=== PATIENT | male | born 1935 | race Caucasian/White ===

== ENCOUNTER 2016-07-17 20:18 | Emergency (ER) | payer MEDICARE, OTHER ==
[2016-07-17 20:28] VITALS: BP 175/92
--- NOTE | 2016-07-17 20:49 | EDM.PDOC ---
ED HPI Trauma - General Chief Complaint: Upper Extremity Injury/Pain Stated Complaint: Right hand injury Time Seen by Provider: 07/17/16 20:40 Source: Reports: Patient, RN notes reviewed History Limitations: Reports: No limitations - History of Present Illness INITIAL COMMENTS - FREE TEXT/NARRATIVE: 80 year old male presents to the ED with right hand pain. He injured his hand while using a power drill today. The drill caught on something, causing it to come to an abrupt stop and twisted his hand. He has no numbness or tingling. No additional injury. Allergies/ADRs: Allergies No Known Allergies Allergy (Verified 07/17/16 20:25) Home Medications: Ambulatory Orders Allopurinol [Zyloprim] 1.5 tab PO DAILY 08/23/13 [Confirmed 03/23/14] Aspirin [Halfprin] 1 tab PO DAILY 08/23/13 [Confirmed 03/23/14] Clopidogrel [Plavix] 75 mg PO DAILY 08/23/13 [Confirmed 03/23/14] Dronedarone [Multaq] 400 mg PO BID 08/23/13 [Confirmed 03/23/14] Furosemide [Lasix] 20 mg PO DAILY 08/23/13 [Confirmed 03/23/14] Losartan [Cozaar] 25 mg PO QPM 08/23/13 [Confirmed 03/23/14] Metoprolol Succinate [Toprol XL] 50 mg PO DAILY 08/23/13 [Confirmed 03/23/14] Nitroglycerin [Nitrostat] 0.4 mg SL ASDIRECTED 08/23/13 [Confirmed 03/23/14] Ranitidine [Zantac] 1 tab PO BID 08/23/13 [Confirmed 03/23/14] atorvaSTATin [Lipitor] 10 mg PO DAILY 08/23/13 [Confirmed 03/23/14] Vit A/Vit C/Vit E/Zinc/Copper [Preservision] 2 cap PO DAILY 03/23/14 [Confirmed 03/23/14] Warfarin [Coumadin] 1.5 tab PO QPM 03/23/14 [Confirmed 03/23/14] Acetaminophen/HYDROcodone [[place] 325-5 MG] 1 tab PO Q6H PRN #20 tablet 07/17/16 Past Medical History HEENT History: Reports: Cataract Cardiovascular History: Reports: High cholesterol, Hypertension, [place] - Past Surgical History Cardiovascular Surgical History: Reports: Coronary artery bypass, Coronary artery stent GI Surgical History: Reports: Appendectomy Other Musculoskeletal Surgeries/Procedures:: back surgery Social & Family History - Tobacco Use Smoking Status *Q: Former Smoker Years of Tobacco use: 60 Used Tobacco, but Quit: Yes Month Tobacco Last Used: 12 Second Hand Smoke Exposure: No - Alcohol Use Days Per Week of Alcohol Use: 0 - Recreational Drug Use Recreational Drug Use: No Review of Systems - Review of Systems Review Of Systems: See Below Musculoskeletal: Reports: hand pain Skin: Reports: no symptoms. Denies: wound Neurological: Reports: No Symptoms. Denies: Numbness, Tingling Trauma Exam - Physical Exam Exam: See Below Exam Limited By: No limitations General Appearance: Reports: alert, WD/WN, no apparent distress Respiratory Exam: Reports: no respiratory distress, lungs clear Cardiovascular: Reports: regular rate, rhythm Extremities: Reports: bony-point tenderness (over 5th metacarpal. No pain over the distal radius or ulna. CMS intact. No obvious deformity) Neurologic: Reports: no motor/sensory deficits, alert, normal mood/affect ED TRAUMA EXTREMITY PROCEDURES - Splinting Right Upper Extremity Splint site: right hand/wrist Pre-procedure NV status: normal Post-procedure NV status: normal Splint material: fiberglass Splint design: gutter (ulnar) Applied & form fitted by: provider Provider post-splint application NV check: NV status normal, good position Complications: No Course - Vital Signs Last Recorded V/S: Last Vital Signs Temp 98.5 F 07/17/16 20:25 Pulse 86 07/17/16 20:25 Resp 18 07/17/16 20:25 BP 175/92 H 07/17/16 20:25 Pulse Ox 97 07/17/16 20:25 - Orders/Labs/Meds Orders: Active Orders 24 hr Category Date Time Status Hand Comp Min 3V Rt [CR] Stat Exams 07/17/16 20:48 Ordered - Re-Assessments/Exams Free Text/Narrative Re-Assessment/Exam: X-ray reveals a displaced fracture of the 5th metacarpal. Discussed with Dr. Velasquez who recommends a ulnar gutter splint and f/u with Dr. Duran in 3-4 days. Patient was educated on fracture care and f/u instructions. Prescription provided for [place] for pain. Educated on medication side effects. Discharge instructions as documented. Departure - Departure Time of Disposition: 21:21 Disposition: Home, Self-Care 01 Condition: good Clinical Impression: Fracture, metacarpal Qualifiers: Encounter type: initial encounter Metacarpal bone: fifth Fracture type: closed Metacarpal location: base Fracture alignment: displaced Laterality: right Qualified Code(s): S62.316A - Displaced fracture of base of fifth metacarpal bone, right hand, initial encounter for closed fracture Prescriptions: Acetaminophen/HYDROcodone [[place] 325-5 MG] 1 tab PO Q6H PRN #20 tablet PRN Reason: Pain Instructions: Metacarpal Fracture, [id number] Referrals: Jaden Gonzalez Jr, MD [Primary Care Provider] - Forms: ED Department Discharge Additional Instructions: Rest, ice and elevate Tylenol 650mg every 8 hours as needed for mild pain [place] 1 tab every 6 hours as needed for more severe pain No driving for at least 8 hours after taking [place]. Caution, this medication can cause sedation. Follow-up with Dr. Duran as soon as possible, call [phone] to schedule an appointment Return to ER if you develop worsening pain Do not remove the splint. Do not get the splint wet - My Orders Last 24 Hours: My Active Orders 07/17/16 20:48 Hand Comp Min 3V Rt [CR] Stat - Assessment/Plan Last 24 Hours: My Active Orders 07/17/16 20:48 Hand Comp Min 3V Rt [CR] Stat
--- NOTE | 2016-07-18 10:31 | CR ---
Right hand: Four views of the right hand were obtained. Comparison: No previous hand study. Joint space narrowing and osteophytes seen within the MCP, PIP and DIP joints. Deformity is seen within the distal fifth metacarpal presumably due to old fracture. Calcification noted off the distal ulnar bone within the triangular fibrocartilage which appears old. Vascular calcification is seen. Impression: 1. Diffuse degenerative change. 2. Deformity of the fifth distal metacarpal most likely representing old fracture but please correlate that patient has no acute symptoms to this region. Diagnostic code #3
== END 2016-07-17 21:30 | disposition home or self-care (01) ==
LOC: JD.ED 20:18
DX: S62.316A Displaced fracture of base of fifth metacarpal bone, right hand, initial encounter for closed fracture (principal); W29.8XXA Contact with other powered hand tools and household machinery, initial encounter; E78.00 Pure hypercholesterolemia, unspecified; I25.2 Old myocardial infarction; I10 Essential (primary) hypertension; Z90.49 Acquired absence of other specified parts of digestive tract; Z95.1 Presence of aortocoronary bypass graft; Z87.891 Personal history of nicotine dependence
CPT/HCPCS: 29125; 73130-26-RT; 73130-RT; 99283; 99283-25; 99284-25

== ENCOUNTER 2018-08-19 21:45 | Emergency (ER) | payer MEDICARE, OTHER ==
[2018-08-19] MEDS ORDERED: Sodium Chloride 0.9% 10 ML Syringe FLUSH PRN (22:08)
[2018-08-19] MEDS ORDERED: diphenhydrAMINE 25 MG Cap PO ONE (23:17)
[2018-08-19 23:22] VITALS: BP 145/89
--- NOTE | 2018-08-19 23:23 | EDM.PDOC ---
ED HPI GENERAL MEDICAL PROBLEM - General Chief Complaint: Chest Pain Stated Complaint: [facility] Time Seen by Provider: 08/19/18 21:57 Source of Information: Reports: Patient, RN Notes Reviewed - History of Present Illness INITIAL COMMENTS - FREE TEXT/NARRATIVE: 82-year-old male comes in with intermittent chest pain left lower chest yesterday and today. He has had occasional shortness of breath at home but does deny shortness of breath on arrival to ED. He does have history of coronary artery disease with bypass surgery many years ago. He has had no abdominal pain nausea vomiting or diaphoresis. He is pain-free at time of my evaluation. Biggest concern when I do visits with him was inability to sleep last night". It sounds like he did do some napping today sitting in his easy chair, at least according to his . He does have history of chronic atrial fib, on Coumadin. - Related Data Allergies Allergy/AdvReac Type Severity Reaction Status Date / Time No Known Allergies Allergy Verified 08/19/18 21:55 Home Meds: Home Meds Aspirin [Halfprin] 1 tab PO DAILY 08/23/13 [History] Furosemide [Lasix] 20 mg PO DAILY 08/23/13 [History] Losartan [Cozaar] 25 mg PO QPM 08/23/13 [History] Metoprolol Succinate [Toprol XL] 50 mg PO QPM 08/23/13 [History] Nitroglycerin [Nitrostat] 0.4 mg SL ASDIRECTED PRN 08/23/13 [History] Ranitidine [Zantac] 1 tab PO BID 08/23/13 [History] Vit A/Vit C/Vit E/Zinc/Copper [Preservision] 2 cap PO DAILY 03/23/14 [History] Warfarin [Coumadin] 5 mg PO DAILY 03/23/14 [History] Metoprolol Succinate 25 mg PO QAM 08/19/18 [History] Pravastatin Sodium [Pravastatin (Pravachol)] 40 mg PO DAILY 08/19/18 [History] Past Medical History HEENT History: Reports: Cataract Cardiovascular History: Reports: High Cholesterol, Hypertension, [place] - Past Surgical History Cardiovascular Surgical History: Reports: Coronary Artery Bypass, Coronary Artery Stent GI Surgical History: Reports: Appendectomy Other Musculoskeletal Surgeries/Procedures:: back surgery Social & Family History - Tobacco Use Smoking Status *Q: Former Smoker Used Tobacco, but Quit: Yes Month/Year Tobacco Last Used: 10 years ago - Caffeine Use Caffeine Use: Reports: Coffee - Recreational Drug Use Recreational Drug Use: No ED ROS GENERAL - Review of Systems Review Of Systems: See Below Constitutional: Denies: Fever, Chills, Diaphoresis HEENT: Denies: Throat Pain Respiratory: Reports: Shortness of Breath (Occasional, exertional), Cough. Denies: Sputum (Occasional) Cardiovascular: Reports: Chest Pain (Gone) GI/Abdominal: Denies: Abdominal Pain, Nausea, Vomiting Musculoskeletal: Reports: Back Pain (Chronic) Skin: Denies: Rash Neurological: Denies: Trouble Speaking, Difficulty Walking, Weakness ED EXAM, GENERAL - Physical Exam Exam: See Below General Appearance: Alert, No Apparent Distress Throat/Mouth: Normal Inspection Head: Atraumatic Neck: Supple, Full Range of Motion, Other Respiratory/Chest: No Respiratory Distress (No JVD), Lungs Clear, Normal Breath Sounds. No: Rhonchi, Wheezing Cardiovascular: Irregularly Irregular GI/Abdominal: Soft, Non-Tender Extremities: Normal Inspection. No: Pedal Edema, Leg Pain, Increased Warmth, Redness Neurological: Alert, Oriented, No Motor/Sensory Deficits Skin Exam: Warm, Dry, Normal Color EKG INTERPRETATION EKG Date: 08/19/18 Rhythm: A-Fib [place]: Normal QRS: LBBB Course - Vital Signs Last Recorded V/S: Last Vital Signs Temp 97.4 F 08/19/18 21:50 Pulse 72 08/19/18 21:50 Resp 16 08/19/18 21:50 BP 145/89 H 08/19/18 21:50 Pulse Ox 97 08/19/18 21:50 - Orders/Labs/Meds Orders: Active Orders 24 hr Category Date Time Status EKG 12 Lead [EKG Documentation Completion] [RC] STAT Care 08/19/18 22:09 Active Peripheral IV Care [RC] . DIRECTED Care 08/19/18 22:09 Active Chest 1V Frontal [CR] Stat Exams 08/19/18 22:09 Taken Peripheral IV Insertion Adult [OM.PC] Stat Oth 08/19/18 22:09 Ordered Labs: Laboratory Tests 08/19/18 08/19/18 08/19/18 Range/Units 22:25 22:25 22:25 WBC 9.36 H (4.23-9.07) K/mm3 RBC 4.37 L (4.63-6.08) M/mm3 Hgb 13.4 L (13.7-17.5) gm/L Hct 39.8 L (40.1-51.0) % MCV 91.1 (79.0-92.2) fl MCH 30.7 (25.7-32.2) pg MCHC 33.7 (32.2-35.5) g/dl RDW Std Deviation 44.3 H (35.1-43.9) fL Plt Count 231 (163-337) K/mm3 MPV 10.4 (9.4-12.3) fl Neut % (Auto) 69.7 H (34.0-67.9) % Lymph % (Auto) 16.8 L (21.8-53.1) % [place] % (Auto) 10.3 (5.3-12.2) % Eos % (Auto) 2.5 (0.8-7.0) Baso % (Auto) 0.5 (0.1-1.2) % Neut # (Auto) 6.53 H (1.78-5.38) K/mm3 Lymph # (Auto) 1.57 (1.32-3.57) K/mm3 [place] # (Auto) 0.96 H (0.30-0.82) K/mm3 Eos # (Auto) 0.23 (0.04-0.54) K/mm3 Baso # (Auto) 0.05 (0.01-0.08) K/mm3 PT 21.5 H (9.5-12.1) SECONDS INR 2.00 Sodium 141 (136-145) mEq/L Potassium 4.2 (3.5-5.1) mEq/L Chloride 107 (98-107) mEq/L Carbon Dioxide 27 (21-32) mEq/L Anion Gap 11.2 (5-15) BUN 31 H (7-18) mg/dL Creatinine 1.7 H (0.7-1.3) mg/dL Est Cr Clr Drug Dosing TNP Estimated GFR (MDRD) 39 (>60) mL/min BUN/Creatinine Ratio 18.2 H (14-18) Glucose 133 H (83-115) mg/dL Calcium 9.4 (8.5-10.1) mg/dL Total Bilirubin 0.4 (0.2-1.0) mg/dL AST 17 (15-37) U/L ALT 24 (16-63) U/L Alkaline Phosphatase 98 (46-116) U/L Troponin I < 0.017 (0.00-0.056) ng/mL Total Protein 6.9 (6.4-8.2) g/dl Albumin 3.4 (3.4-5.0) g/dl Globulin 3.5 gm/dL Albumin/Globulin Ratio 1.0 (1-2) Meds: Medications Discontinued Medications Generic Name Dose Route Start Last Admin Trade Name Freq PRN Reason Stop Dose Admin Diphenhydramine HCl 25 mg 08/19/18 23:17 08/19/18 23:36 Benadryl PO 08/19/18 23:18 25 mg ONETIME ONE Administration Sodium Chloride 10 ml 08/19/18 22:08 Saline Flush FLUSH ASDIRECTED PRN Keep Vein Open - Re-Assessments/Exams Free Text/Narrative Re-Assessment/Exam: 08/20/18 00:02 Troponin did come back normal, chest x-ray shows mild cardiomegaly but otherwise no apparent acute findings. An resting comfortably while here in the ED, vitals stable rate running merrily in the 80s. He continues to be concerned about his difficulty sleeping last night. I considered giving him something like low dosage lorazepam but his states that type of medication of had the opposite effect on him several years ago. Her for we did give him Benadryl 25 mg orally prior to discharge. Discharge instructions as documented. Departure - Departure Time of Disposition: 23:20 Disposition: Home, Self-Care 01 Condition: Fair Clinical Impression: Atypical chest pain Insomnia Qualifiers: Insomnia type: unspecified Qualified Code(s): G47.00 - Insomnia, unspecified Instructions: Nonspecific Chest Pain, [id number] Referrals: Jaden Gonzalez Jr, MD [Primary Care Provider] - Forms: ED Department Discharge Additional Instructions: You have been given Benadryl 25 mg orally here in the ED at time of discharge. That should make you drowsy and help you sleep tonight. If you feel that is helpful then you can consider taking Tylenol PM in the future to help you sleep. I do strongly recommend that you take melatonin supplement available OTC about one hour before bedtime to help you sleep better in the future. Your heart and lungs checked out well tonight here in the ED. Follow-up with Dr. Gonzalez in about 5-7 days for recheck. Call tomorrow morning for appointment. Return to ED as needed if symptoms worsening in any way. - My Orders Last 24 Hours: My Active Orders 08/19/18 22:09 EKG 12 Lead [EKG Documentation Completion] [RC] STAT Peripheral IV Care [RC] . DIRECTED Chest 1V Frontal [CR] Stat Peripheral IV Insertion Adult [OM.PC] Stat - Assessment/Plan Last 24 Hours: My Active Orders 08/19/18 22:09 EKG 12 Lead [EKG Documentation Completion] [RC] STAT Peripheral IV Care [RC] . DIRECTED Chest 1V Frontal [CR] Stat Peripheral IV Insertion Adult [OM.PC] Stat
--- NOTE | 2018-08-20 06:08 | CR ---
Chest: Portable view of the chest was obtained. Comparison: No prior chest x-ray. Heart size is slightly enlarged. Tortuous thoracic aorta is seen. Sternotomy for CABG is noted. Lungs are clear with no acute parenchymal change. Bony structures are grossly intact. Impression: 1. Findings as noted above. Nothing acute is seen. Diagnostic code #2
== END 2018-08-19 23:40 | disposition home or self-care (01) ==
LOC: JD.ED 21:45
DX: R07.89 Other chest pain (principal); G47.00 Insomnia, unspecified; I10 Essential (primary) hypertension; E78.00 Pure hypercholesterolemia, unspecified; I25.2 Old myocardial infarction; Z79.899 Other long term (current) drug therapy; Z79.82 Long term (current) use of aspirin; Z79.01 Long term (current) use of anticoagulants
CPT/HCPCS: 36415; 71045; 80053; 84484; 85025; 85610; 93005; 99285; A9270; 93010; 99284

== ENCOUNTER 2019-01-22 11:41 | Emergency (ER) | payer MEDICARE, OTHER ==
[2019-01-22 11:50] VITALS: BP 161/97; PULSE 76
--- NOTE | 2019-01-22 13:30 | EDM.PDOC ---
ED HPI GENERAL MEDICAL PROBLEM - General Chief Complaint: General Stated Complaint: [facility] Time Seen by Provider: 01/22/19 11:46 Source of Information: Reports: Patient, RN Notes Reviewed - History of Present Illness INITIAL COMMENTS - FREE TEXT/NARRATIVE: 83-year-old male accidentally took both his morning and evening meds today. His was concerned about that called EMS. Vitals were stable and he was in no distress on their arrival. They did transported here without incident. His also states that he is been more confused recently. He has history of quite severe insomnia. Some trazodone 50 mg was prescribed for him a few weeks ago. However after what his thinks were just a few doses that medication was stopped tenderness to have confusion that seems to be worsening. He currently has no chest pain or difficulty breathing. No abdominal pain nausea vomiting. There is no history of recent fall or injury. - Related Data Allergies Allergy/AdvReac Type Severity Reaction Status Date / Time No Known Allergies Allergy Verified 01/22/19 11:50 Home Meds: Home Meds Aspirin [Halfprin] 1 tab PO DAILY 08/23/13 [History] Furosemide [Lasix] 20 mg PO DAILY 08/23/13 [History] Losartan [Cozaar] 25 mg PO QPM 08/23/13 [History] Metoprolol Succinate [Toprol XL] 50 mg PO QPM 08/23/13 [History] Nitroglycerin [Nitrostat] 0.4 mg SL ASDIRECTED PRN 08/23/13 [History] Ranitidine [Zantac] 1 tab PO BID 08/23/13 [History] Vit A/Vit C/Vit E/Zinc/Copper [Preservision] 2 cap PO BID 03/23/14 [History] Warfarin [Coumadin] 5 mg PO DAILY 03/23/14 [History] Metoprolol Succinate 25 mg PO QAM 08/19/18 [History] Pravastatin Sodium [Pravastatin (Pravachol)] 40 mg PO DAILY 08/19/18 [History] Past Medical History HEENT History: Reports: Cataract Cardiovascular History: Reports: High Cholesterol, Hypertension, [place] - Past Surgical History HEENT Surgical History: Reports: Adenoidectomy, Tonsillectomy Cardiovascular Surgical History: Reports: Coronary Artery Bypass, Coronary Artery Stent GI Surgical History: Reports: Appendectomy Musculoskeletal Surgical History: Reports: Other (See Below) Other Musculoskeletal Surgeries/Procedures:: back surgery Social & Family History - Family History Family Medical History: Noncontributory - Tobacco Use Smoking Status *Q: Current Status Unknown Years of Tobacco use: 60 Packs/Tins Daily: 0.5 - Caffeine Use Caffeine Use: Reports: Coffee - Recreational Drug Use Recreational Drug Use: No ED ROS GENERAL - Review of Systems Review Of Systems: See Below Constitutional: Denies: Fever, Chills HEENT: Denies: Throat Pain Respiratory: Denies: Shortness of Breath Cardiovascular: Denies: Chest Pain GI/Abdominal: Denies: Abdominal Pain, Nausea, Vomiting Musculoskeletal: Denies: Leg Pain Skin: Denies: Rash Neurological: Reports: Dizziness (Gone). Denies: Numbness, Tingling, Trouble Speaking Psychiatric: Reports: Confusion (For at least several weeks, according to seems to be worsening) ED EXAM, GENERAL - Physical Exam Exam: See Below General Appearance: Alert, No Apparent Distress, Other (Cooperative with exam but easily distracted, appears to have difficulty keeping focused.) Eye Exam: Bilateral Eye: PERRL Throat/Mouth: Normal Inspection, Normal Oropharynx Head: Atraumatic. No: Facial Swelling Neck: Supple Respiratory/Chest: No Respiratory Distress, Lungs Clear, Normal Breath Sounds. No: Rales, Rhonchi, Wheezing Cardiovascular: Irregularly Irregular GI/Abdominal: Soft, Non-Tender Back Exam: No: CVA Tenderness (L), CVA Tenderness (R) Extremities: No: Pedal Edema, Leg Pain, Increased Warmth, Redness Neurological: Alert, No Motor/Sensory Deficits Skin Exam: Warm, Dry, Normal Color EKG INTERPRETATION EKG Date: 01/22/19 Rhythm: A-Fib Rate (Beats/Min): 77 P-Wave: Absent QRS: LBBB ST-T: Normal Course - Vital Signs Last Recorded V/S: Last Vital Signs Temp 97.1 F 01/22/19 11:46 Pulse 76 01/22/19 11:46 Resp 19 01/22/19 11:46 BP 161/97 H 01/22/19 11:46 Pulse Ox 97 01/22/19 11:46 - Orders/Labs/Meds Orders: Active Orders 24 hr Category Date Time Status EKG 12 Lead [EKG Documentation Completion] [RC] STAT Care 01/22/19 12:06 Active Influenza Vaccine Charge [RC] .DISCHARGE Care 01/22/19 11:56 Active Labs: Laboratory Tests 01/22/19 01/22/19 01/22/19 Range/Units 12:28 12:28 12:28 WBC 7.18 (4.23-9.07) K/mm3 RBC 4.70 (4.63-6.08) M/mm3 Hgb 13.8 (13.7-17.5) gm/dl Hct 41.8 (40.1-51.0) % MCV 88.9 (79.0-92.2) fl MCH 29.4 (25.7-32.2) pg MCHC 33.0 (32.2-35.5) g/dl RDW Std Deviation 46.2 H (35.1-43.9) fL Plt Count 250 (163-337) K/mm3 MPV 10.7 (9.4-12.3) fl Neut % (Auto) 68.6 H (34.0-67.9) % Lymph % (Auto) 19.1 L (21.8-53.1) % [place] % (Auto) 9.6 (5.3-12.2) % Eos % (Auto) 2.2 (0.8-7.0) Baso % (Auto) 0.4 (0.1-1.2) % Neut # (Auto) 4.92 (1.78-5.38) K/mm3 Lymph # (Auto) 1.37 (1.32-3.57) K/mm3 [place] # (Auto) 0.69 (0.30-0.82) K/mm3 Eos # (Auto) 0.16 (0.04-0.54) K/mm3 Baso # (Auto) 0.03 (0.01-0.08) K/mm3 PT 22.8 H (9.7-12.0) SECONDS INR 2.19 Sodium 139 (136-145) mEq/L Potassium 4.2 (3.5-5.1) mEq/L Chloride 106 (98-107) mEq/L Carbon Dioxide 27 (21-32) mEq/L Anion Gap 10.2 (5-15) BUN 24 H (7-18) mg/dL Creatinine 1.3 (0.7-1.3) mg/dL Est Cr Clr Drug Dosing 48.66 mL/min Estimated GFR (MDRD) 53 (>60) mL/min BUN/Creatinine Ratio 18.5 H (14-18) Glucose 108 (83-115) mg/dL Calcium 9.5 (8.5-10.1) mg/dL Total Bilirubin 0.7 (0.2-1.0) mg/dL AST 13 L (15-37) U/L ALT 18 (16-63) U/L Alkaline Phosphatase 96 (46-116) U/L Total Protein 7.0 (6.4-8.2) g/dl Albumin 3.6 (3.4-5.0) g/dl Globulin 3.4 gm/dL Albumin/Globulin Ratio 1.1 (1-2) Meds: Medications Discontinued Medications Generic Name Dose Route Start Last Admin Trade Name Freq PRN Reason Stop Dose Admin Influenza Virus Vaccine 1 each 01/22/19 11:56 Pharmacy To Dose - Influenza Vaccine IM 01/22/19 11:57 ONETIME ONE Influenza Virus Vaccine 180 mcg 01/22/19 12:00 01/22/19 12:50 Fluzone High-Dose 2019-20 Syringe IM 01/22/19 12:01 180 mcg .ONCE ONE Administration - Re-Assessments/Exams Free Text/Narrative Re-Assessment/Exam: 01/22/19 14:09 EKG does show atrial fibrillation documented, chest x-ray mild atelectasis both bases, no acute findings. Labs did come back relatively normal. INR was in the 2.2 range. Heart rate has continued in the upper 60s to mid 70s while here in the ED. Blood pressure has been fine evidence of hypotension. No evidence of harm from extra medication taken. His states he has only had 2 or 3 doses of the trazodone and then it was stopped but when we counted those in the bottle there were 23 with 30 prescribed 928 so there are 7 days worth of medication missing. I do have some concern based on my brief amount of time with Mr. 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 His short-term memory is not good and he does have difficulty keeping focused on current subject matter. This was discussed with his when we did have a chance to visit in private. She does share my concern. Discharge instructions as documented. Departure - Departure Time of Disposition: 13:37 Disposition: Home, Self-Care 01 Condition: Fair Clinical Impression: Accidental medication overdose, Confusion - Discharge Information Instructions: Accidental Overdose, Confusion Referrals: Jaden Gonzalez Jr, MD [Primary Care Provider] - Forms: ED Department Discharge Additional Instructions: Stop taking the trazodone as that has strong potential for confusion, drowsiness and dizziness. Try increase the melatonin to 10 mg as discussed. Avoid late afternoon or evening caffeine. Try see Dr. Gonzalez in about 3-5 days, call clinic Thursday for appointment. Return to ED as needed. - My Orders Last 24 Hours: My Active Orders 01/22/19 11:56 Influenza Vaccine Charge [RC] .DISCHARGE 01/22/19 12:06 EKG 12 Lead [EKG Documentation Completion] [RC] STAT - Assessment/Plan Last 24 Hours: My Active Orders 01/22/19 11:56 Influenza Vaccine Charge [RC] .DISCHARGE 01/22/19 12:06 EKG 12 Lead [EKG Documentation Completion] [RC] STAT
--- NOTE | 2019-01-22 13:54 | CR ---
Chest: Portable view of the chest was obtained. Comparison: Prior chest x-ray of 08/19/18. Findings: Heart is slightly prominent in size. Tortuous thoracic aorta is seen. Sternotomy for CABG is noted. Lungs shows mild atelectasis within both lung bases. Lungs otherwise are clear. Bony structures are grossly intact. Impression: 1. Mild atelectasis within both lung bases. 2. Other findings as noted above which appears stable from prior chest x-ray. Diagnostic code #2
== END 2019-01-22 13:50 | disposition home or self-care (01) ==
LOC: JD.ED 11:41
DX: T43.211A Poisoning by selective serotonin and norepinephrine reuptake inhibitors, accidental (unintentional), initial encounter (principal); R41.0 Disorientation, unspecified; I10 Essential (primary) hypertension; I25.2 Old myocardial infarction; E78.00 Pure hypercholesterolemia, unspecified; F17.210 Nicotine dependence, cigarettes, uncomplicated; Z79.82 Long term (current) use of aspirin; Z79.899 Other long term (current) drug therapy
CPT/HCPCS: 36415; 71045; 80053; 85025; 85610; 90662; 93005; 99285; G0008

== ENCOUNTER 2019-03-11 11:23 | Emergency (ER) | payer MEDICARE, OTHER ==
[2019-03-11 11:38] VITALS: BP 128/80; PULSE 92
[2019-03-11] MEDS ORDERED: Sodium Chloride 0.9% 10 ML Syringe FLUSH PRN (11:50)
[2019-03-11] MEDS ORDERED: Haloperidol Lactate 5 MG/ML SDV IVPUSH ONE ×2 (12:00→14:32)
--- NOTE | 2019-03-11 12:39 | CT ---
Head CT Technique: Multiple axial sections through the brain were obtained. Intravenous contrast was not utilized. Comparison: No prior intracranial imaging. Findings: Ventricles along with basal cisterns and sulci over the convexities are moderately prominent. Left occipital horn appears more prominent than on the right side compatible with ex vacuole enlargement from old adjacent cortical infarct. No other abnormal parenchymal densities are seen. No evidence of intracranial hemorrhage. No midline shift or mass effect is seen. Mild areas of mucosal thickening seen within the ethmoid and frontal sinuses. Mastoid sinuses are clear. No acute calvarial abnormality is seen. Impression: 1. Sinus findings believed to be incidental and chronic. 2. Generalized atrophy. 3. 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 4. No acute intracranial abnormality is seen. Diagnostic code #2 This report was dictated in [place] Standard Time
--- NOTE | 2019-03-11 13:14 | EDM.PDOCBH ---
ED HPI GENERAL MEDICAL PROBLEM - General Chief Complaint: Neurological Problem Stated Complaint: [facility] Time Seen by Provider: 03/11/19 11:40 Source of Information: Reports: Patient, RN Notes Reviewed - History of Present Illness INITIAL COMMENTS - FREE TEXT/NARRATIVE: 83-year-old male has been brought here by ambulance my 's request after occurrence of aggressive verbal behavior this morning. 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 His states that he began to show signs of forgetfulness 2-3 years ago which has been worsening. For some time now he has had frequent episodes of delusional thinking and behavior. She states he will wake up from sleep as if he is having "bad dreams. He will than start accusing her of having multiple "other men" and also has other delusional thinking and speech about money and other things that nake no sense but tend to get him quite agitated. Patient himself does not know why he is here in the emergency department. When questioned he does deny headache chest abdominal discomfort or any difficulty breathing. - Related Data Allergies Allergy/AdvReac Type Severity Reaction Status Date / Time No Known Allergies Allergy Verified 01/22/19 11:50 Home Meds: Home Meds Aspirin [Halfprin] 1 tab PO DAILY 08/23/13 [History] Furosemide [Lasix] 20 mg PO DAILY 08/23/13 [History] Losartan [Cozaar] 25 mg PO QPM 08/23/13 [History] Metoprolol Succinate [Toprol XL] 50 mg PO QPM 08/23/13 [History] Nitroglycerin [Nitrostat] 0.4 mg SL ASDIRECTED PRN 08/23/13 [History] Ranitidine [Zantac] 1 tab PO BID 08/23/13 [History] Vit A/Vit C/Vit E/Zinc/Copper [Preservision] 2 cap PO BID 03/23/14 [History] Warfarin [Coumadin] 5 mg PO SUMOTUTHFRSA 03/23/14 [History] Metoprolol Succinate 25 mg PO QAM 08/19/18 [History] Pravastatin Sodium [Pravastatin (Pravachol)] 40 mg PO DAILY 08/19/18 [History] Haloperidol [Haldol] 1 mg PO Q12HR #60 tab 03/11/19 [Rx] Past Medical History HEENT History: Reports: Cataract Cardiovascular History: Reports: High Cholesterol, Hypertension, [place] - Past Surgical History HEENT Surgical History: Reports: Adenoidectomy, Tonsillectomy Cardiovascular Surgical History: Reports: Coronary Artery Bypass, Coronary Artery Stent GI Surgical History: Reports: Appendectomy Musculoskeletal Surgical History: Reports: Other (See Below) Other Musculoskeletal Surgeries/Procedures:: back surgery Social & Family History - Family History Family Medical History: Noncontributory - Tobacco Use Smoking Status *Q: Current Every Day Smoker Years of Tobacco use: 50 Packs/Tins Daily: 0.5 - Caffeine Use Caffeine Use: Reports: Coffee, Soda - Recreational Drug Use Recreational Drug Use: No ED ROS GENERAL - Review of Systems Review Of Systems: See Below Constitutional: Denies: Fever, Chills HEENT: Reports: No Symptoms Respiratory: Denies: Shortness of Breath Cardiovascular: Denies: Chest Pain GI/Abdominal: Denies: Abdominal Pain, Nausea, Vomiting Musculoskeletal: Denies: Back Pain Skin: Reports: No Symptoms Neurological: Reports: No Symptoms ED EXAM, BEHAVIORAL HEALTH - Physical Exam Exam: See Below General Appearance: Alert, No Apparent Distress, Other (Moderately confused) Eye Exam: Bilateral Eye: PERRL Throat/Mouth: Normal Inspection, Normal Oropharynx Head: Atraumatic. No: Facial Swelling Neck: Supple, Other Respiratory/Chest: No Respiratory Distress, Lungs Clear (No JVD), Normal Breath Sounds. No: Rales, Rhonchi, Wheezing Cardiovascular: Regular Rate, Rhythm GI/Abdominal: Soft, Non-Tender Extremities: Normal Inspection, Normal Range of Motion. No: Leg Pain, Redness Neurological: Alert, No Motor/Sensory Deficits, Other (Moderately confused oriented to person but not place or time) Psychiatric: Alert, Disoriented, Other Skin Exam: Warm, Dry, Normal color COURSE, BEHAVIORAL HEALTH COMP - Course Vital Signs: Last Vital Signs Temp 97.2 F 03/11/19 11:37 Pulse 92 03/11/19 11:37 Resp 20 03/11/19 11:37 BP 128/80 03/11/19 11:37 Pulse Ox 92 L 03/11/19 11:37 Orders, Labs, Meds: Laboratory Tests 03/11/19 03/11/19 Range/Units 12:10 12:10 WBC 7.52 (4.23-9.07) K/mm3 RBC 4.50 L (4.63-6.08) M/mm3 Hgb 13.6 L (13.7-17.5) gm/dl Hct 40.8 (40.1-51.0) % MCV 90.7 (79.0-92.2) fl MCH 30.2 (25.7-32.2) pg MCHC 33.3 (32.2-35.5) g/dl RDW Std Deviation 48.6 H (35.1-43.9) fL Plt Count 248 (163-337) K/mm3 MPV 11.1 (9.4-12.3) fl Neut % (Auto) 68.4 H (34.0-67.9) % Lymph % (Auto) 18.0 L (21.8-53.1) % [place] % (Auto) 10.0 (5.3-12.2) % Eos % (Auto) 2.8 (0.8-7.0) Baso % (Auto) 0.7 (0.1-1.2) % Neut # (Auto) 5.15 (1.78-5.38) K/mm3 Lymph # (Auto) 1.35 (1.32-3.57) K/mm3 [place] # (Auto) 0.75 (0.30-0.82) K/mm3 Eos # (Auto) 0.21 (0.04-0.54) K/mm3 Baso # (Auto) 0.05 (0.01-0.08) K/mm3 Sodium 139 (136-145) mEq/L Potassium 4.2 (3.5-5.1) mEq/L Chloride 105 (98-107) mEq/L Carbon Dioxide 25 (21-32) mEq/L Anion Gap 13.2 (5-15) BUN 25 H (7-18) mg/dL Creatinine 1.5 H (0.7-1.3) mg/dL Est Cr Clr Drug Dosing 39.74 mL/min Estimated GFR (MDRD) 45 (>60) mL/min BUN/Creatinine Ratio 16.7 (14-18) Glucose 94 (83-115) mg/dL Calcium 9.4 (8.5-10.1) mg/dL Total Bilirubin 0.7 (0.2-1.0) mg/dL AST 12 L (15-37) U/L ALT 17 (16-63) U/L Alkaline Phosphatase 93 (46-116) U/L Total Protein 7.2 (6.4-8.2) g/dl Albumin 3.6 (3.4-5.0) g/dl Globulin 3.6 gm/dL Albumin/Globulin Ratio 1.0 (1-2) Medications Discontinued Medications Generic Name Dose Route Start Last Admin Trade Name Dasha PRN Reason Stop Dose Admin Haloperidol Lactate 2 mg 03/11/19 12:00 03/11/19 12:15 Haldol IVPUSH 03/11/19 12:01 2 mg ONETIME ONE Administration Haloperidol Lactate 1 mg 03/11/19 14:32 03/11/19 14:45 Haldol IVPUSH 03/11/19 14:33 1 mg ONETIME ONE Administration Sodium Chloride 10 ml 03/11/19 11:50 03/11/19 12:11 Saline Flush FLUSH 10 ml ASDIRECTED PRN Administration Keep Vein Open Re-Assessment/Re-Exam: White blood count normal, chemistries relatively normal. Head CT does show evidence of prior mild stroke and also mild generalized atrophy. Findings. Chest x-ray normal. I discussed this with Love, one of our hospital social workers regarding current symptoms and concerns that his does have at this time. She did go to visit with patient a short time ago. We have given Haldol 2 mg IV. 14:40. Patient has been resting comfortably cooperative with ED staff. I just was in the room short time ago and he was friendly with her, is reported to have told her that he "loves her". It is now getting too late on Thursday afternoon to accomplish placement at the [facility] today. The 's preference for placement. I do not see that sending him to inpatient psych is necessary at this time realizing placing him in that type of unfamiliar environment is going to be "terrifying for him. His is agreeable with the suggestion that she take him home and try low dose twice a day Haldol awaiting placement at the [facility] which will likely occur early next week. If this does not work out or if symptoms worsen than she is to call the ambulance and have him brought back to the ED for reevaluation. There was family concern, a son who is not here and also concern expressed by "[facility]" about him going home without "supervised observation on the Haldol for a period of time." Calls were placed to [facility] and also [facility]. They are all full. I do not see great risk in him going home. His dementia is progressing, there will continue to be better days and worse days but his status/brain, condition is not much if any different today from yesterday or a week ago. Placement is in his and his ' s best interest but for now, today it is in my best clinical judgement safe for him to go home on Haldol 1 mg bid. would rather take him go home rather than look at a transfer to [place] or [place]. Discharge instr. as documented. Departure - Departure Time of Disposition: 14:36 Disposition: Home, Self-Care 01 Condition: Fair Clinical Impression: Aggressive behavior of adult Alzheimers disease Qualifiers: Alzheimer's disease onset: early-onset Dementia behavioral disturbance: with behavioral disturbance Qualified Code(s): G30.0 - Alzheimer's disease with early onset; F02.81 - Dementia in other diseases classified elsewhere with behavioral disturbance - Discharge Information Prescriptions: Haloperidol [Haldol] 1 mg PO Q12HR #60 tab Instructions: Alzheimer Disease Referrals: Jaden Gonzalez Jr, MD [Primary Care Provider] - Forms: ED Department Discharge Additional Instructions: Haldol 1 mg twice daily. He has been given a total of 3 mg while here in the ED. Next dose should be 1 mg tonight at bedtime. Continue that 1 mg twice daily until further directed. That prescription has been called to [facility] at the [employer]. Stop and pick that up on your way home this afternoon. Our hospital social workers will continue to work on a cement at the [facility]. Follow-up at the [facility] [place] as needed. Return to ED if symptoms worsening in any way.
--- NOTE | 2019-03-11 13:57 | CR ---
Chest: Portable view of the chest was obtained. Comparison: Prior chest x-ray of 01/22/19. Heart size is felt to be within normal limits for portable technique. Tortuous thoracic aorta is seen. Lungs are clear with no acute parenchymal change. Sternotomy is noted from CABG. Bony structures are grossly intact. Impression: 1. Nothing acute is seen on portable chest x-ray. Diagnostic code #2
== END 2019-03-11 16:23 | disposition home or self-care (01) ==
LOC: SUPCPDRO 11:23 → JD.ED 11:23
DX: F91.9 Conduct disorder, unspecified (principal); I10 Essential (primary) hypertension; I25.2 Old myocardial infarction; F17.210 Nicotine dependence, cigarettes, uncomplicated; Z79.899 Other long term (current) drug therapy; Z79.82 Long term (current) use of aspirin; Z79.01 Long term (current) use of anticoagulants; Z98.890 Other specified postprocedural states
CPT/HCPCS: 36415; 70450; 71045; 80053; 85025; 96374; 96376; 99285; J1630; 99283

== ENCOUNTER 2019-07-20 08:49 | Inpatient (IN) | payer MEDICARE, OTHER ==
[2019-07-20] MEDS ORDERED: Albuterol 6.7 GM Inhaler INH ONE (09:25)
[2019-07-20] MEDS ORDERED: cefTRIAXone 2 GM in Sodium Chloride 0.9% 100 ML IV SCH (09:30)
[2019-07-20] MEDS ORDERED: Piperacillin/Tazobactam 4.5 GM in Sodium Chloride 0.9% 100 ML IV SCH (09:30)
--- NOTE | 2019-07-20 10:11 | CR ---
Portable view of the chest was obtained. Comparison: Prior chest x-ray of 03/11/19. Heart size is normal. Tortuous thoracic aorta is seen. Increased density is seen within the right upper and right lower lung as well as within the left perihilar region. Bony structures are grossly intact. Previous sternotomy is noted. Impression: 1. Patchy areas of increased density as noted above. Findings are worse on the right side. Findings most likely represent pneumonia either bacterial or viral in etiology. Diagnostic code #3 Study was dictated in MDT
--- NOTE | 2019-07-20 10:21 | EDM.PDOC ---
ED HPI GENERAL MEDICAL PROBLEM - General Chief Complaint: Fever Stated Complaint: [facility] Time Seen by Provider: 07/20/19 09:01 Source of Information: Reports: Patient, EMS, [facility] Records History Limitations: Reports: No Limitations - History of Present Illness INITIAL COMMENTS - FREE TEXT/NARRATIVE: The patient presents by [facility] from [facility] for a cough and fever. This started a couple days ago. He has some shortness of breath also. [facility]. He was given some tylenol and his temp improved. He has a wet cough. He has no chest pain, abdominal pain, nausea or vomiting. According to [facility] he has had some trouble swallowing lately. Onset: Gradual Duration: Day(s): Severity: Moderate Improves with: Reports: None Worsens with: Reports: None Associated Symptoms: Reports: Cough, Fever/Chills, Shortness of Breath. Denies : Chest Pain, Headaches, Nausea/Vomiting Treatments [employer]: Reports: IV/IO - Related Data Allergies Allergy/AdvReac Type Severity Reaction Status Date / Time No Known Allergies Allergy Verified 07/20/19 09:06 Home Meds: Home Meds Aspirin [Halfprin] 1 tab PO DAILY 08/23/13 [History] Furosemide [Lasix] 20 mg PO DAILY 08/23/13 [History] Losartan [Cozaar] 25 mg PO DAILY 08/23/13 [History] Nitroglycerin [Nitrostat] 0.4 mg SL ASDIRECTED PRN 08/23/13 [History] Warfarin [Coumadin] 2.5 mg PO SUTUTHSA 03/23/14 [History] Metoprolol Succinate 25 mg PO QAM 08/19/18 [History] Pravastatin Sodium [Pravastatin (Pravachol)] 40 mg PO DAILY 08/19/18 [History] Famotidine [Pepcid] 20 mg PO DAILY 07/20/19 [History] Sertraline [Zoloft] 25 mg PO BEDTIME 07/20/19 [History] Warfarin [Coumadin] 5 mg PO MOWEFR 07/20/19 [History] risperiDONE [Risperdal] 0.5 mg PO DAILY 07/20/19 [History] risperiDONE [Risperdal] 1 mg PO 1700 07/20/19 [History] Past Medical History HEENT History: Reports: Cataract Cardiovascular History: Reports: High Cholesterol, Hypertension, [place] Psychiatric History: Reports: Depression - Past Surgical History HEENT Surgical History: Reports: Adenoidectomy, Tonsillectomy Cardiovascular Surgical History: Reports: Coronary Artery Bypass, Coronary Artery Stent GI Surgical History: Reports: Appendectomy Musculoskeletal Surgical History: Reports: Other (See Below) Other Musculoskeletal Surgeries/Procedures:: back surgery Social & Family History - Family History Family Medical History: Noncontributory - Tobacco Use Smoking Status *Q: Unknown Ever Smoked - Caffeine Use Caffeine Use: Reports: Coffee, Soda ED ROS GENERAL - Review of Systems Review Of Systems: See Below Constitutional: Reports: Fever HEENT: Reports: No Symptoms Respiratory: Reports: Shortness of Breath, Cough Cardiovascular: Reports: No Symptoms Endocrine: Reports: No Symptoms GI/Abdominal: Reports: No Symptoms : Reports: No Symptoms Musculoskeletal: Reports: No Symptoms ED EXAM, SEPSIS - Physical Exam Exam: See Below Exam Limited By: No Limitations General Appearance: Alert, No Apparent Distress Ears: Normal External Exam Nose: Normal Inspection Head: Atraumatic, Normocephalic Neck: Normal Inspection Respiratory/Chest: No Respiratory Distress, Decreased Breath Sounds, Wheezing Cardiovascular: Regular Rate, Rhythm, No Edema, No Murmur GI/Abdominal Exam: Soft, Non-Tender, No Organomegaly, No Mass Back: Normal Inspection Extremities: Normal Inspection Course - Vital Signs Last Recorded V/S: Last Vital Signs Temp 97.3 F 07/20/19 09:01 Pulse 130 H 07/20/19 09:01 Resp 24 H 07/20/19 09:01 BP 128/72 07/20/19 09:01 Pulse Ox 89 L 07/20/19 09:01 - Orders/Labs/Meds Orders: Active Orders 24 hr Category Date Time Status Cardiac Monitoring [RC] . DIRECTED Care 07/20/19 09:23 Active Insert Maldonado Catheter [Insert Urinary Catheter] [OM.PC] Care 07/20/19 10:18 Ordered Stat Oxygen Therapy [RC] PRN Care 07/20/19 09:23 Active Peripheral IV Care [RC] . DIRECTED Care 07/20/19 09:24 Active RT Post Treatment Assessment [RC] Click to Edit Care 07/20/19 09:25 Active RT Pre-Treatment Assessment [RC] Click to Edit Care 07/20/19 09:25 Active Urinary Catheter Assessment [RC] ASDIRECTED Care 07/20/19 10:18 Active CORONAVIRUS COVID-19 PCR PHL Stat Lab 07/20/19 10:15 Received CULTURE BLOOD [BC] Stat Lab 07/20/19 09:53 Received CULTURE BLOOD [BC] Stat Lab 07/20/19 10:00 Received Sodium Chloride 0.9% [Saline Flush] Med 07/20/19 09:23 Active 10 ml FLUSH ASDIRECTED PRN Vancomycin [Vancocin] 2 gm Med 07/20/19 09:30 Active Sodium Chloride 0.9% [Normal Saline (AdvBag)] 250 ml IV Q24H cefTRIAXone [Rocephin] 2 gm Med 07/20/19 09:30 Active Sodium Chloride 0.9% [Normal Saline] 100 ml IV Q24H Blood Culture x2 Reflex Set [OM.PC] Stat Ot 07/20/19 09:24 Ordered Isolation [COMM] Routine Oth 07/20/19 09:28 Ordered Peripheral IV Insertion Adult [OM.PC] Stat Oth 07/20/19 09:23 Ordered Medication Orders Ceftriaxone Sodium 2 gm/ (Sodium Chloride) 100 mls @ 200 mls/hr IV Q24H [facility] Last Admin: 07/20/19 11:20 Dose: 200 mls/hr Vancomycin HCl 2 gm/ Sodium (Chloride) 250 mls @ 250 mls/hr IV Q24H [facility] Last Admin: 07/20/19 12:33 Dose: 250 mls/hr Sodium Chloride (Saline Flush) 10 ml FLUSH ASDIRECTED PRN PRN Reason: Keep Vein Open Last Admin: 07/20/19 11:22 Dose: 10 ml Labs: Laboratory Tests 07/20/19 07/20/19 07/20/19 Range/Units 09:53 09:53 09:53 WBC 11.11 H (4.23-9.07) K/mm3 RBC 3.36 L (4.63-6.08) M/mm3 Hgb 9.9 L D (13.7-17.5) gm/dl Hct 32.5 L (40.1-51.0) % MCV 96.7 H D (79.0-92.2) fl MCH 29.5 (25.7-32.2) pg MCHC 30.5 L (32.2-35.5) g/dl RDW Std Deviation 47.9 H (35.1-43.9) fL Plt Count 461 H D (163-337) K/mm3 MPV 10.8 (9.4-12.3) fl Neut % (Auto) 78.7 H (34.0-67.9) % Lymph % (Auto) 11.4 L (21.8-53.1) % [place] % (Auto) 8.8 (5.3-12.2) % Eos % (Auto) 0.3 L (0.8-7.0) Baso % (Auto) 0.5 (0.1-1.2) % Neut # (Auto) 8.75 H (1.78-5.38) K/mm3 Lymph # (Auto) 1.27 L (1.32-3.57) K/mm3 [place] # (Auto) 0.98 H (0.30-0.82) K/mm3 Eos # (Auto) 0.03 L (0.04-0.54) K/mm3 Baso # (Auto) 0.05 (0.01-0.08) K/mm3 Manual Slide Review Normal smear PT 16.9 H (9.7-12.0) SECONDS INR 1.59 APTT 37 H (22-31) SECONDS Sodium 152 H D (136-145) mEq/L Potassium 4.2 (3.5-5.1) mEq/L Chloride 115 H (98-107) mEq/L Carbon Dioxide 25 (21-32) mEq/L Anion Gap 16.2 H (5-15) BUN 43 H (7-18) mg/dL Creatinine 1.6 H (0.7-1.3) mg/dL Est Cr Clr Drug Dosing 39.53 mL/min Estimated GFR (MDRD) 41 (>60) mL/min BUN/Creatinine Ratio 26.9 H (14-18) Glucose 144 H (83-115) mg/dL Lactic Acid (0.4-2.0) mmol/L Calcium 10.6 H (8.5-10.1) mg/dL Ferritin (26-388) ng/ml Total Bilirubin 0.6 (0.2-1.0) mg/dL AST 112 H (15-37) U/L ALT 152 H (16-63) U/L Alkaline Phosphatase 131 H (46-116) U/L Lactate Dehydrogenase 147 (85-227) U/L C-Reactive Protein 24.0 H* (<1.0) mg/dL Total Protein 7.1 (6.4-8.2) g/dl Albumin 1.8 L (3.4-5.0) g/dl Globulin 5.3 gm/dL Albumin/Globulin Ratio 0.3 L (1-2) Urine Color (Yellow) Urine Appearance (Clear) Urine pH (5.0-8.0) Ur Specific [place] (1.005-1.030) Urine Protein (Negative) Urine Glucose (UA) (Negative) Urine Ketones (Negative) Urine Occult Blood (Negative) Urine Nitrite (Negative) Urine Bilirubin (Negative) Urine Urobilinogen (0.2-1.0) Ur Leukocyte Esterase (Negative) Urine RBC (0-5) /hpf Urine WBC (0-5) /hpf Ur Squamous Epith Cells (0-5) /hpf Urine Bacteria (FEW) /hpf Urine Mucus (FEW) /hpf 07/20/19 07/20/19 07/20/19 Range/Units 09:53 10:00 10:15 WBC (4.23-9.07) K/mm3 RBC (4.63-6.08) M/mm3 Hgb (13.7-17.5) gm/dl Hct (40.1-51.0) % MCV (79.0-92.2) fl MCH (25.7-32.2) pg MCHC (32.2-35.5) g/dl RDW Std Deviation (35.1-43.9) fL Plt Count (163-337) K/mm3 MPV (9.4-12.3) fl Neut % (Auto) (34.0-67.9) % Lymph % (Auto) (21.8-53.1) % [place] % (Auto) (5.3-12.2) % Eos % (Auto) (0.8-7.0) Baso % (Auto) (0.1-1.2) % Neut # (Auto) (1.78-5.38) K/mm3 Lymph # (Auto) (1.32-3.57) K/mm3 [place] # (Auto) (0.30-0.82) K/mm3 Eos # (Auto) (0.04-0.54) K/mm3 Baso # (Auto) (0.01-0.08) K/mm3 Manual Slide Review PT (9.7-12.0) SECONDS INR APTT (22-31) SECONDS Sodium (136-145) mEq/L Potassium (3.5-5.1) mEq/L Chloride (98-107) mEq/L Carbon Dioxide (21-32) mEq/L Anion Gap (5-15) BUN (7-18) mg/dL Creatinine (0.7-1.3) mg/dL Est Cr Clr Drug Dosing mL/min Estimated GFR (MDRD) (>60) mL/min BUN/Creatinine Ratio (14-18) Glucose (83-115) mg/dL Lactic Acid 1.2 (0.4-2.0) mmol/L Calcium (8.5-10.1) mg/dL Ferritin 1574 H (26-388) ng/ml Total Bilirubin (0.2-1.0) mg/dL AST (15-37) U/L ALT (16-63) U/L Alkaline Phosphatase (46-116) U/L Lactate Dehydrogenase (85-227) U/L C-Reactive Protein (<1.0) mg/dL Total Protein (6.4-8.2) g/dl Albumin (3.4-5.0) g/dl Globulin gm/dL Albumin/Globulin Ratio (1-2) Urine Color Yellow (Yellow) Urine Appearance Clear (Clear) Urine pH 5.5 (5.0-8.0) Ur Specific [place] 1.025 (1.005-1.030) Urine Protein Negative (Negative) Urine Glucose (UA) Negative (Negative) Urine Ketones Negative (Negative) Urine Occult Blood Negative (Negative) Urine Nitrite Negative (Negative) Urine Bilirubin Negative (Negative) Urine Urobilinogen 1.0 (0.2-1.0) Ur Leukocyte Esterase Negative (Negative) Urine RBC 0-5 (0-5) /hpf Urine WBC 0-5 (0-5) /hpf Ur Squamous Epith Cells 0-5 (0-5) /hpf Urine Bacteria Few (FEW) /hpf Urine Mucus Few (FEW) /hpf Meds: Medications Generic Name Dose Route Start Last Admin Trade Name Freq PRN Reason Stop Dose Admin Ceftriaxone Sodium 2 gm/ 100 mls @ 200 mls/hr 07/20/19 09:30 07/20/19 11:20 Sodium Chloride IV 200 mls/hr Q24H URSULA Administration Vancomycin HCl 2 gm/ Sodium 250 mls @ 250 mls/hr 07/20/19 09:30 07/20/19 12: 33 Chloride IV 250 mls/hr Q24H URSULA Administration Sodium Chloride 10 ml 07/20/19 09:23 07/20/19 11:22 Saline Flush FLUSH 10 ml ASDIRECTED PRN Administration Keep Vein Open Discontinued Medications Generic Name Dose Route Start Last Admin Trade Name Freq PRN Reason Stop Dose Admin Albuterol 0 gm 07/20/19 09:25 07/20/19 10:06 Proventil Hfa INH 07/20/19 09:26 2 puff ONETIME ONE Administration Piperacillin Sod/Tazobactam 100 mls @ 200 mls/hr 07/20/19 09:30 Sod 4.5 gm/ Sodium Chloride IV Q6H URSULA Piperacillin Sod/Tazobactam 100 mls @ 200 mls/hr 07/20/19 10:30 07/20/19 11: 55 Sod 4.5 gm/ Sodium Chloride IV 07/20/19 10:59 200 mls/hr ONETIME ONE Administration - Re-Assessments/Exams Free Text/Narrative Re-Assessment/Exam: 07/20/19 10:22 I ordered an IV saline lock, oxygen, CXR, labs, blood cultures, COVID 19 test, influenza, albuterol, zosyn 4.5grams, vancomycin 2 grams and rocephin 2 grams IV. 07/20/19 11:35 His WBC is elevated at 11.11. His Hgb is low at 9.9. His platelets are elevated at 461. His INR is 1.59. His Pt is elevated at 16.9. His PTT is elevated at 37 His Na is elevated at 152. His anion gap is elevated at 16.2. His creatinine is elevated at 1.6. His glucose is elevated at 144. His lactic acid is normal at 1.2. His ferritin is elevated at 1574. His AST is elevated at 112. His ALT is elevated at 152. His alk phos is elevated at 131. His LDH is negative. His CRP is elevated at 24. His UA shows no UTI. His CXR shows patchy anne of increased density as noted above. Findings are worse on the right side. Findings most likely represent pneumonia either bacterial or viral in etiology. His influenza was negative. 07/20/19 11:49 The patient is SIRS positive but he is not septic. He does not have end organ disfunction. I feel he needs to be admitted. I called Dr Ellison and she will come see the patient for admission. Departure - Departure Time of Disposition: 13:00 Disposition: Admitted As Inpatient 66 Condition: Serious Clinical Impression: Hypoxia, Hypernatremia Pneumonia Qualifiers: Pneumonia type: due to unspecified organism Laterality: right Lung location: upper lobe of lung Qualified Code(s): J18.9 - Pneumonia, unspecified organism - Discharge Information Referrals: Kirt Tenorio MD [Primary Care Provider] - Forms: ED Department Discharge Sepsis Event Note - Evaluation Sepsis Screening Result: Possible Sepsis Risk - Focused Exam Vital Signs: Vital Signs Temp Pulse Resp BP Pulse Ox 07/20/19 09:01 97.3 F 130 H 24 H 128/72 89 L Date Exam was Performed: 07/20/19 Time Exam was Performed: 12:54 - My Orders Last 24 Hours: My Active Orders 07/20/19 09:23 Cardiac Monitoring [RC] . DIRECTED Oxygen Therapy [RC] PRN Sodium Chloride 0.9% [Saline Flush] 10 ml FLUSH ASDIRECTED PRN Peripheral IV Insertion Adult [OM.PC] Stat 07/20/19 09:24 Peripheral IV Care [RC] . DIRECTED Blood Culture x2 Reflex Set [OM.PC] Stat 07/20/19 09:25 RT Post Treatment Assessment [RC] Click to Edit RT Pre-Treatment Assessment [RC] Click to Edit 07/20/19 09:28 Isolation [COMM] Routine 07/20/19 09:30 Vancomycin [Vancocin] 2 gm Sodium Chloride 0.9% [Normal Saline (AdvBag)] 250 ml IV Q24H cefTRIAXone [Rocephin] 2 gm Sodium Chloride 0.9% [Normal Saline] 100 ml IV Q24H 07/20/19 09:53 CULTURE BLOOD [BC] Stat 07/20/19 10:00 CULTURE BLOOD [BC] Stat 07/20/19 10:15 CORONAVIRUS COVID-19 PCR PHL Stat 07/20/19 10:18 Insert Maldonado Catheter [Insert Urinary Catheter] [OM.PC] Stat Urinary Catheter Assessment [RC] ASDIRECTED - Assessment/Plan Last 24 Hours: My Active Orders 07/20/19 09:23 Cardiac Monitoring [RC] . DIRECTED Oxygen Therapy [RC] PRN Sodium Chloride 0.9% [Saline Flush] 10 ml FLUSH ASDIRECTED PRN Peripheral IV Insertion Adult [OM.PC] Stat 07/20/19 09:24 Peripheral IV Care [RC] . DIRECTED Blood Culture x2 Reflex Set [OM.PC] Stat 07/20/19 09:25 RT Post Treatment Assessment [RC] Click to Edit RT Pre-Treatment Assessment [RC] Click to Edit 07/20/19 09:28 Isolation [COMM] Routine 07/20/19 09:30 Vancomycin [Vancocin] 2 gm Sodium Chloride 0.9% [Normal Saline (AdvBag)] 250 ml IV Q24H cefTRIAXone [Rocephin] 2 gm Sodium Chloride 0.9% [Normal Saline] 100 ml IV Q24H 07/20/19 09:53 CULTURE BLOOD [BC] Stat 07/20/19 10:00 CULTURE BLOOD [BC] Stat 07/20/19 10:15 CORONAVIRUS COVID-19 PCR PHL Stat 07/20/19 10:18 Insert Maldonado Catheter [Insert Urinary Catheter] [OM.PC] Stat Urinary Catheter Assessment [RC] ASDIRECTED
[2019-07-20] MEDS ORDERED: Piperacillin/Tazobactam 4.5 GM in Sodium Chloride 0.9% 100 ML IV ONE (10:30)
[2019-07-20] MEDS: Sodium Chloride 0.9% 10 ML Syringe FLUSH PRN (11:22)
[2019-07-20] MEDS ORDERED: Acetaminophen 325 MG Tab PO PRN (13:31)
--- NOTE | 2019-07-20 13:31 | PCM.HP.2 ---
H&P History of Present Illness - General Date of Service: 07/20/19 - History of Present Illness Initial Comments - Free Text/Narative: Patient with baseline dementia so information obtained by chart review and verbal staff reports. "The patient presents by [facility] from [facility] for a cough and fever. This started a couple days ago. He has some shortness of breath also. He had a temp of 101 at the custodial. He was given some tylenol and his temp improved. He has a wet cough. He has no chest pain, abdominal pain, nausea or vomiting. According to custodial records he has had some trouble swallowing lately." - Related Data Allergies/Adverse Reactions: Allergies Allergy/AdvReac Type Severity Reaction Status Date / Time No Known Allergies Allergy Verified 07/20/19 09:06 Home Medications: Home Meds Aspirin [Halfprin] 1 tab PO DAILY 08/23/13 [History] Furosemide [Lasix] 20 mg PO DAILY 08/23/13 [History] Losartan [Cozaar] 25 mg PO DAILY 08/23/13 [History] Nitroglycerin [Nitrostat] 0.4 mg SL ASDIRECTED PRN 08/23/13 [History] Warfarin [Coumadin] 2.5 mg PO SUTUTHSA 03/23/14 [History] Metoprolol Succinate 25 mg PO QAM 08/19/18 [History] Pravastatin Sodium [Pravastatin (Pravachol)] 40 mg PO DAILY 08/19/18 [History] Famotidine [Pepcid] 20 mg PO DAILY 07/20/19 [History] Sertraline [Zoloft] 25 mg PO BEDTIME 07/20/19 [History] Warfarin [Coumadin] 5 mg PO MOWEFR 07/20/19 [History] risperiDONE [Risperdal] 0.5 mg PO DAILY 07/20/19 [History] risperiDONE [Risperdal] 1 mg PO 1700 07/20/19 [History] Past Medical History HEENT History: Reports: Cataract Cardiovascular History: Reports: High Cholesterol, Hypertension, [place] Psychiatric History: Reports: Depression - Past Surgical History HEENT Surgical History: Reports: Adenoidectomy, Tonsillectomy Cardiovascular Surgical History: Reports: Coronary Artery Bypass, Coronary Artery Stent GI Surgical History: Reports: Appendectomy Musculoskeletal Surgical History: Reports: Other (See Below) Other Musculoskeletal Surgeries/Procedures:: back surgery Social & Family History - Family History Family Medical History: Noncontributory - Tobacco Use Smoking Status *Q: Unknown Ever Smoked - Caffeine Use Caffeine Use: Reports: Coffee, Soda H&P Review of Systems - Review of Systems: Review Of Systems: Unable To Obtain Reason Not Obtained: dementia at baseline Exam - Exam Exam: See Below - Vital Signs Vital Signs: Last Vital Signs Temp 97.3 F 07/20/19 09:01 Pulse 130 H 07/20/19 09:01 Resp 24 H 07/20/19 09:01 BP 128/72 07/20/19 09:01 Pulse Ox 89 L 07/20/19 09:01 Weight: 83.915 kg - Exam Quality Assessment: Supplemental Oxygen General: Lethargic (but arousable, following one step commands) HEENT: Conjunctiva Clear. No: Mucosa Moist & [place] (oral mucosa is dry with very poor dentition and halitosis) Neck: Trachea Midline. No: Lymphadenopathy Lungs: Decreased Breath Sounds, Crackles. No: Rales, Rhonchi, Rub, Stridor, Wheezing Cardiovascular: Irregular Rhythm, Tachycardia. No: Systolic Murmur, Diastolic Murmur, Rubs, Gallop/S3, Gallop/S4 GI/Abdominal Exam: Normal Bowel Sounds, Soft, Non-Tender Extremities: Normal Inspection, No Pedal Edema, Slow Capillary Refill Peripheral Pulses: 0: Dorsalis Pedis (L), Dorsalis Pedis (R), 1+: Radial (L), Radial (R), Popliteal (L), Popliteal (R) Skin: Dry, Intact - Patient Data Result Diagrams: 07/20/19 09:53 07/20/19 09:53 EKG INTERPRETATION EKG Date: 07/20/19 Rhythm: A-Fib Rate (Beats/Min): 110 Sepsis Event Note - Evaluation Sepsis Screening Result: Possible Sepsis Risk Current Stage of Sepsis: Ruled Out Reason for Ruling Out Sepsis: no end organ dysfunction Possible Source of Sepsis: Pulmonary - Focused Exam Vital Signs: Vital Signs Temp Pulse Resp BP Pulse Ox 07/20/19 09:01 97.3 F 130 H 24 H 128/72 89 L Date Exam was Performed: 07/20/19 Time Exam was Performed: 14:02 - Problem List (1) Suspected 2019-nCoV infection SNOMED Code(s): 721208563 ICD Code: R68.89 - OTHER GENERAL SYMPTOMS AND SIGNS Status: Acute Current Visit: Yes (2) Acute hypoxemic respiratory failure SNOMED Code(s): 818312322 ICD Code: J96.01 - ACUTE RESPIRATORY FAILURE WITH HYPOXIA Status: Acute Current Visit: Yes (3) Dementia SNOMED Code(s): 77792176 ICD Code: F03.90 - UNSPECIFIED DEMENTIA WITHOUT BEHAVIORAL DISTURBANCE Status: Acute Current Visit: Yes (4) long term resident SNOMED Code(s): 782646291 ICD Code: Z59.3 - PROBLEMS RELATED TO LIVING IN RESIDENTIAL INSTITUTION Status: Acute Current Visit: Yes (5) Atrial fibrillation with RVR SNOMED Code(s): 574047469191414 ICD Code: I48.91 - UNSPECIFIED ATRIAL FIBRILLATION Status: Acute Current Visit: Yes (6) Hypernatremia SNOMED Code(s): 902205397 ICD Code: E87.0 - HYPEROSMOLALITY AND HYPERNATREMIA Status: Acute Current Visit: Yes (7) Alzheimers disease SNOMED Code(s): 09468233 ICD Code: G30.9 - ALZHEIMER'S DISEASE, UNSPECIFIED; F02.80 - DEMENTIA IN OTH DISEASES CLASSD ELSWHR W/O BEHAVRL DISTURB Status: Acute Current Visit: No Qualifiers: Alzheimer's disease onset: early-onset Dementia behavioral disturbance: with behavioral disturbance Qualified Code(s): G30.0 - Alzheimer's disease with early onset; F02.81 - Dementia in other diseases classified elsewhere with behavioral disturbance (8) Subtherapeutic international normalized ratio (INR) SNOMED Code(s): 518567266, 238070180 ICD Code: R79.1 - ABNORMAL COAGULATION PROFILE Status: Acute Current Visit: Yes (9) On warfarin at home SNOMED Code(s): 197246885 ICD Code: Z79.01 - [employer] (CURRENT) USE OF ANTICOAGULANTS Status: Acute Current Visit: Yes (10) Abnormal liver function tests SNOMED Code(s): 675351193 ICD Code: R94.5 - ABNORMAL RESULTS OF LIVER FUNCTION STUDIES Status: Acute Current Visit: Yes (11) Hyperchloremia SNOMED Code(s): 44406052 ICD Code: E87.8 - OTH DISORDERS OF ELECTROLYTE AND FLUID BALANCE, NEC Status: Acute Current Visit: Yes (12) Leukocytosis SNOMED Code(s): 993890138, 438809162 ICD Code: D72.829 - ELEVATED WHITE BLOOD CELL COUNT, UNSPECIFIED Status: Acute Current Visit: Yes (13) Lymphopenia SNOMED Code(s): 29927491 ICD Code: D72.810 - LYMPHOCYTOPENIA Status: Acute Current Visit: Yes (14) Dysphagia SNOMED Code(s): 21293632, 314080584 ICD Code: R13.10 - DYSPHAGIA, UNSPECIFIED Status: Acute Current Visit: Yes (15) Hypercalcemia SNOMED Code(s): 78899334 ICD Code: E83.52 - HYPERCALCEMIA Status: Acute Current Visit: Yes (16) Healthcare-associated pneumonia SNOMED Code(s): 687602854, 911905676 ICD Code: J18.9 - PNEUMONIA, UNSPECIFIED ORGANISM Status: Acute Current Visit: Yes (17) Aspiration pneumonia SNOMED Code(s): 128736626 ICD Code: J69.0 - PNEUMONITIS DUE TO INHALATION OF FOOD AND VOMIT Status: Acute Current Visit: Yes (18) Acute kidney injury SNOMED Code(s): 23990829, 06712317 ICD Code: N17.9 - ACUTE KIDNEY FAILURE, UNSPECIFIED Status: Acute Current Visit: Yes (19) Chronic kidney disease (CKD), stage III (moderate) SNOMED Code(s): 049526380 ICD Code: N18.3 - CHRONIC KIDNEY DISEASE, STAGE 3 (MODERATE) Status: Acute Current Visit: Yes Problem List Initiated/Reviewed/Updated: Yes Assessment/Plan Comment:: ASSESSMENT BY DAY DAY OF ADMISSION - Does not meet sepsis criteria due to no organ dysfunction - High suspicion for COVI19--> worsening respiratory status+leukocytosis+ lymphopenia+abnormal LFTs+elevated D dimer + elevated ferritin and CRP - Previously diagnosed with dysphagia appears to have worsening symptoms for a couple of days - On room air at home and requiring 4-5L NC here - Tachycardic on admission with subtherapeutic INR, as per custodial records has been getting warfarin due to dysphagia will start full dose Lovenox - Hypovolemic likely 2/2 decreased oral intake - Worsening dysphagia --> will keep NPO until speech evaluation PLAN BY PROBLEM Healthcare associated pneumonia Aspiration pneumonia Suspected 2018-nCoV infection Acute hypoxemic respiratory failure Leukocytosis/Lymphopenia Dysphagia - Start Vancomycin, Levaquin and Zosyn - Procalcitonin every 48 hours - O2 supplementation via NC for now - Monitor for fever, panculture if temp > 99.3 - Sputum culture, induced - COVID test - Maximum isolation precautions - PRN DuoNebs Acute on chronic kidney disease, stage III Hypovolemic hypernatremia, hypercalcemia and hyperchloremia - D5 1/2 NS at 150 for now - Repeat labs every 4 hours - Monitor urine output - Renally dosed medications - Avoid nephrotoxic agents Atrial fibrillation with RVR on Warfarin Subtherapeutic INR - Hold warfarin due to NPO status - Full dose Lovenox - Monitor heart rate with vital signs every 4 hours - Change metoprolol PO to IV Dysphagia, worsening 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 From [facility] - Mortality Measure Prognosis:: Poor (poor performance status, end stage dementia, complicated infection)
[2019-07-20] MEDS ORDERED: Enoxaparin 40 MG/0.4 ML Syringe SUBCUT SCH (13:45)
[2019-07-20] MEDS: Dextrose 5%-0.45% NaCl 1,000 ML IV SCH ×2 (14:02→20:56)
[2019-07-20] MEDS: Sertraline 25 MG Tab PO SCH (21:05)
[2019-07-21] MEDS: Enoxaparin 80 MG/0.8 ML Syringe SUBCUT SCH ×2 (04:44→17:28)
[2019-07-21] MEDS: Dextrose 5%-0.45% NaCl 1,000 ML IV SCH (04:44)
[2019-07-21] MEDS ORDERED: Albuterol 6.7 GM Inhaler INH PRN (10:14)
[2019-07-21] MEDS: Metoprolol Succinate 25 MG Tab.ER PO SCH (11:05)
[2019-07-21] MEDS: risperiDONE 0.5 MG Tab PO SCH (11:07)
[2019-07-21] MEDS: Dextrose 5% in Water 1,000 ML IV SCH (11:10)
[2019-07-21] MEDS: Levofloxacin/Dextrose 5%-Water 750 MG in Premix Bag 1 BAG IV SCH (11:15)
[2019-07-21] MEDS: Sodium Chloride 0.9% 10 ML Syringe FLUSH PRN (11:19)
[2019-07-21] MEDS ORDERED: cefTRIAXone 2 GM in Sodium Chloride 0.9% 100 ML IV SCH (11:30)
[2019-07-21] MEDS ORDERED: Piperacillin/Tazobactam 4.5 GM in Sodium Chloride 0.9% 100 ML IV ONE (12:00)
[2019-07-21] MEDS ORDERED: Vancomycin 2 GM in Sodium Chloride 0.9% 500 ML IV SCH (12:30)
--- NOTE | 2019-07-21 13:59 | PCM.PN ---
- General Info Date of Service: 07/21/19 Subjective Update: BM today Slept OK No agitation episodes - Patient Data Vitals - Most Recent: Last Vital Signs Temp 98.1 F 07/21/19 08:49 Pulse 80 07/21/19 11:05 Resp 20 07/21/19 08:49 BP 137/82 07/21/19 11:05 Pulse Ox 97 07/21/19 09:23 Weight - Most Recent: 84.051 kg - Exam Physical Findings Comments:: Quality Assessment: Supplemental Oxygen General: Lethargic (but arousable, following one step commands) HEENT: Conjunctiva Clear. No: Mucosa Moist & [place] (oral mucosa is dry with very poor dentition and halitosis) Neck: Trachea Midline. No: Lymphadenopathy Lungs: Decreased Breath Sounds, Crackles. No: Rales, Rhonchi, Rub, Stridor, Wheezing Cardiovascular: Irregular Rhythm, Tachycardia. No: Systolic Murmur, Diastolic Murmur, Rubs, Gallop/S3, Gallop/S4 GI/Abdominal Exam: Normal Bowel Sounds, Soft, Non-Tender Extremities: Normal Inspection, No Pedal Edema, Slow Capillary Refill Peripheral Pulses: 0: Dorsalis Pedis (L), Dorsalis Pedis (R), 1+: Radial (L), Radial (R), Popliteal (L), Popliteal (R) Skin: Dry, Intact Sepsis Event Note - Evaluation Sepsis Screening Result: No Definite Risk - Focused Exam Vital Signs: Vital Signs Temp Pulse Resp BP Pulse Ox Pulse Ox 07/21/19 11:05 80 137/82 07/21/19 09:23 97 07/21/19 08:49 98.1 F 80 20 137/82 99 07/21/19 08:39 98 07/21/19 08:36 99 07/21/19 02:30 97.5 F 94 18 116/60 99 Date Exam was Performed: 07/21/19 Time Exam was Performed: 15:05 - Problem List & Annotations (1) Suspected 2019-nCoV infection SNOMED Code(s): 191721533 Code(s): R68.89 - OTHER GENERAL SYMPTOMS AND SIGNS Status: Acute Current Visit: Yes (2) Acute hypoxemic respiratory failure SNOMED Code(s): 332544607 Code(s): J96.01 - ACUTE RESPIRATORY FAILURE WITH HYPOXIA Status: Acute Current Visit: Yes (3) Dementia SNOMED Code(s): 44974558 Code(s): F03.90 - UNSPECIFIED DEMENTIA WITHOUT BEHAVIORAL DISTURBANCE Status: Acute Current Visit: Yes (4) senior living resident SNOMED Code(s): 578215390 Code(s): Z59.3 - PROBLEMS RELATED TO LIVING IN RESIDENTIAL INSTITUTION Status: Acute Current Visit: Yes (5) Atrial fibrillation with RVR SNOMED Code(s): 690478196969323 Code(s): I48.91 - UNSPECIFIED ATRIAL FIBRILLATION Status: Acute Current Visit: Yes (6) Hypernatremia SNOMED Code(s): 908274761 Code(s): E87.0 - HYPEROSMOLALITY AND HYPERNATREMIA Status: Acute Current Visit: Yes (7) Alzheimers disease SNOMED Code(s): 46110058 Code(s): G30.9 - ALZHEIMER'S DISEASE, UNSPECIFIED; F02.80 - DEMENTIA IN OTH DISEASES CLASSD ELSWHR W/O BEHAVRL DISTURB Status: Acute Current Visit: No Qualifiers: Alzheimer's disease onset: early-onset Dementia behavioral disturbance: with behavioral disturbance Qualified Code(s): G30.0 - Alzheimer's disease with early onset; F02.81 - Dementia in other diseases classified elsewhere with behavioral disturbance (8) Subtherapeutic international normalized ratio (INR) SNOMED Code(s): 939814764, 461274127 Code(s): R79.1 - ABNORMAL COAGULATION PROFILE Status: Acute Current Visit : Yes (9) On warfarin at home SNOMED Code(s): 043943222 Code(s): Z79.01 - LONG-TERM (CURRENT) USE OF ANTICOAGULANTS Status: Acute Current Visit: Yes (10) Abnormal liver function tests SNOMED Code(s): 449359710 Code(s): R94.5 - ABNORMAL RESULTS OF LIVER FUNCTION STUDIES Status: Acute Current Visit: Yes (11) Hyperchloremia SNOMED Code(s): 18941990 Code(s): E87.8 - OTH DISORDERS OF ELECTROLYTE AND FLUID BALANCE, NEC Status : Acute Current Visit: Yes (12) Leukocytosis SNOMED Code(s): 458220719, 955535351 Code(s): D72.829 - ELEVATED WHITE BLOOD CELL COUNT, UNSPECIFIED Status: Acute Current Visit: Yes (13) Lymphopenia SNOMED Code(s): 99643572 Code(s): D72.810 - LYMPHOCYTOPENIA Status: Acute Current Visit: Yes (14) Dysphagia SNOMED Code(s): 71261730, 513271305 Code(s): R13.10 - DYSPHAGIA, UNSPECIFIED Status: Acute Current Visit: Yes (15) Hypercalcemia SNOMED Code(s): 55776223 Code(s): E83.52 - HYPERCALCEMIA Status: Acute Current Visit: Yes (16) Healthcare-associated pneumonia SNOMED Code(s): 451301769, 504473388 Code(s): J18.9 - PNEUMONIA, UNSPECIFIED ORGANISM Status: Acute Current Visit: Yes (17) Aspiration pneumonia SNOMED Code(s): 581825647 Code(s): J69.0 - PNEUMONITIS DUE TO INHALATION OF FOOD AND VOMIT Status: Acute Current Visit: Yes (18) Acute kidney injury SNOMED Code(s): 44611079, 70523342 Code(s): N17.9 - ACUTE KIDNEY FAILURE, UNSPECIFIED Status: Acute Current Visit: Yes (19) Chronic kidney disease (CKD), stage III (moderate) SNOMED Code(s): 016604806 Code(s): N18.3 - CHRONIC KIDNEY DISEASE, STAGE 3 (MODERATE) Status: Acute Current Visit: Yes - Problem List Review Problem List Initiated/Reviewed/Updated: Yes - Plan Plan:: ASSESSMENT BY DAY DAY OF ADMISSION - Does not meet sepsis criteria due to no organ dysfunction - High suspicion for COVI19--> worsening respiratory status+leukocytosis+ lymphopenia+abnormal LFTs+elevated D dimer + elevated ferritin and CRP - Previously diagnosed with dysphagia appears to have worsening symptoms for a couple of days - On room air at home and requiring 4-5L NC here - Tachycardic on admission with subtherapeutic INR, as per detention records has been getting warfarin due to dysphagia will start full dose Lovenox - Hypovolemic likely 2/2 decreased oral intake - Worsening dysphagia --> will keep NPO until speech evaluation DAY 1 - Diet confirmed with detention, due to worsening dysphagia will request new speech therapy evaluation - O2 supplementation was titrated down to 1L this morning - Minimal changes in lab tests - MRSA negative --> D/C vancomycin - No change in Na--> change IVF to D5W - BP trend 109-128/53-72 - HR in the 90s PLAN BY PROBLEM Healthcare associated pneumonia Aspiration pneumonia Suspected 2018-nCoV infection Acute hypoxemic respiratory failure Leukocytosis/Lymphopenia Dysphagia - Continue Levaquin and Zosyn - Procalcitonin every 48 hours - O2 supplementation via NC for now - Monitor for fever, panculture if temp > 99.3 - Sputum culture,pending - COVID test pending - Maximum isolation precautions - PRN DuoNebs Acute on chronic kidney disease, stage III Hypovolemic hypernatremia, hypercalcemia and hyperchloremia - D5W at 75 - Repeat labs every 4 hours - Monitor urine output - Renally dosed medications - Avoid nephrotoxic agents Atrial fibrillation with RVR on Warfarin Subtherapeutic INR - Full dose Lovenox - Monitor heart rate with vital signs every 4 hours - Discuss anticoagulation with Dysphagia, worsening 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 From [facility]
[2019-07-21] MEDS: risperiDONE 1 MG Tab PO SCH (17:28)
[2019-07-21] MEDS: Sertraline 25 MG Tab PO SCH (21:01)
[2019-07-21] MEDS: Piperacillin/Tazobactam 4.5 GM in Sodium Chloride 0.9% 100 ML IV SCH (21:01)
[2019-07-22] MEDS: Dextrose 5% in Water 1,000 ML IV SCH (00:52)
[2019-07-22] MEDS: Piperacillin/Tazobactam 4.5 GM in Sodium Chloride 0.9% 100 ML IV SCH ×3 (04:37→21:29)
[2019-07-22] MEDS: Enoxaparin 80 MG/0.8 ML Syringe SUBCUT SCH (04:39)
--- NOTE | 2019-07-22 09:17 | PCM.PN ---
- General Info Date of Service: 07/22/19 Subjective Update: Doing fairly well Last BM Today On and off of oxygen today Much more alert today Functional Status: Reports: Pain Controlled, Tolerating Diet, Ambulating, Urinating. Denies: New Symptoms - Review of Systems General: Reports: No Symptoms, Weakness. Denies: Fever, Fatigue, Malaise, Chills HEENT: Reports: No Symptoms. Denies: Headaches, Sore Throat Pulmonary: Reports: No Symptoms, Cough. Denies: Shortness of Breath, Sputum, Wheezing Cardiovascular: Reports: No Symptoms. Denies: Chest Pain, Palpitations, Dyspnea on Exertion Gastrointestinal: Reports: No Symptoms. Denies: Abdominal Pain, Constipation, Diarrhea, Nausea, Vomiting Genitourinary: Reports: No Symptoms. Denies: Pain Musculoskeletal: Reports: No Symptoms Skin: Reports: No Symptoms. Denies: Cyanosis Neurological: Reports: Confusion (baseline ), Weakness. Denies: Difficulty Walking, Gait Disturbance Psychiatric: Reports: No Symptoms - Patient Data Vitals - Most Recent: Last Vital Signs Temp 98.1 F 07/22/19 04:38 Pulse 98 07/22/19 04:38 Resp 18 07/22/19 04:38 BP 106/92 H 07/22/19 04:38 Pulse Ox 93 L 07/22/19 04:38 Weight - Most Recent: 189 lb 1.6 oz I&O - Last 24 Hours: Intake & Output 07/21/19 07/22/19 07/22/19 22:59 06:59 14:59 Intake Total 1690 1555 Balance 1690 1555 Lab Results Last 24 Hours: Laboratory Results - last 24 hr 07/20/19 07/22/19 Range/Units 10:15 08:23 WBC 9.56 H (4.23-9.07) K/mm3 RBC 3.31 L (4.63-6.08) M/mm3 Hgb 9.8 L (13.7-17.5) gm/dl Hct 31.8 L (40.1-51.0) % MCV 96.1 H (79.0-92.2) fl MCH 29.6 (25.7-32.2) pg MCHC 30.8 L (32.2-35.5) g/dl RDW Std Deviation 45.7 H (35.1-43.9) fL Plt Count 404 H (163-337) K/mm3 MPV 10.8 (9.4-12.3) fl Neut % (Auto) 77.5 H (34.0-67.9) % Lymph % (Auto) 12.2 L (21.8-53.1) % [place] % (Auto) 7.5 (5.3-12.2) % Eos % (Auto) 2.2 (0.8-7.0) Baso % (Auto) 0.3 (0.1-1.2) % Neut # (Auto) 7.40 H (1.78-5.38) K/mm3 Lymph # (Auto) 1.17 L (1.32-3.57) K/mm3 [place] # (Auto) 0.72 (0.30-0.82) K/mm3 Eos # (Auto) 0.21 (0.04-0.54) K/mm3 Baso # (Auto) 0.03 (0.01-0.08) K/mm3 COVID-19 PCR Not detected (NOT DETECT) [place] Results Last 24 Hours: Microbiology 07/20/19 09:53 Aerobic Blood Culture - Preliminary Blood - Venous NO GROWTH AFTER 1 DAY Anaerobic Blood Culture - Preliminary NO GROWTH AFTER 1 DAY 07/20/19 10:00 Aerobic Blood Culture - Preliminary Blood - Venous - Lab Draw NO GROWTH AFTER 1 DAY Anaerobic Blood Culture - Preliminary NO GROWTH AFTER 1 DAY Med Orders - Current: Current Medications Acetaminophen (Tylenol) 325 mg PO Q4H PRN PRN Reason: Pain (Mild 1-3)/fever Last Admin: 07/21/19 21:01 Dose: 325 mg Albuterol (Proventil Hfa) 0 gm INH Q4H PRN PRN Reason: Shortness of breath Enoxaparin Sodium (Lovenox) 80 mg SUBCUT Q12H [facility] Last Admin: 07/22/19 04:39 Dose: 80 mg Dextrose/Water (Dextrose 5% In Water) 1,000 mls @ 75 mls/hr IV ASDIRECTED URSULA Last Admin: 07/22/19 00:52 Dose: 75 mls/hr Levofloxacin/Dextrose 750 mg/ (Premix) 150 mls @ 100 mls/hr IV Q48H [facility] Last Admin: 07/21/19 11:15 Dose: 100 mls/hr Piperacillin Sod/Tazobactam (Sod 4.5 gm/ Sodium Chloride) 100 mls @ 25 mls/hr IV Q8H [facility] Last Admin: 07/22/19 04:37 Dose: 25 mls/hr Metoprolol Succinate (Toprol Xl) 25 mg PO QAM [facility] Last Admin: 07/21/19 11:05 Dose: 25 mg Risperidone (Risperidal) 1 mg PO 1700 [facility] Last Admin: 07/21/19 17:28 Dose: 1 mg Risperidone (Risperidal) 0.5 mg PO DAILY [facility] Last Admin: 07/21/19 11:07 Dose: 0.5 mg Sertraline HCl (Zoloft) 25 mg PO BEDTIME [facility] Last Admin: 07/21/19 21:01 Dose: 25 mg Sodium Chloride (Saline Flush) 10 ml FLUSH ASDIRECTED PRN PRN Reason: Keep Vein Open Last Admin: 07/21/19 11:19 Dose: 10 ml Discontinued Medications Albuterol (Proventil Hfa) 0 gm INH ONETIME ONE Stop: 07/20/19 09:26 Last Admin: 07/20/19 10:06 Dose: 2 puff Enoxaparin Sodium (Lovenox) 80 mg SUBCUT Q12H [facility] Last Admin: 07/20/19 15:39 Dose: 80 mg Ceftriaxone Sodium 2 gm/ (Sodium Chloride) 100 mls @ 200 mls/hr IV Q24H [facility] Last Admin: 07/20/19 11:20 Dose: 200 mls/hr Piperacillin Sod/Tazobactam (Sod 4.5 gm/ Sodium Chloride) 100 mls @ 200 mls/hr IV Q6H [facility] Last Admin: 07/20/19 15:35 Dose: Not Given Vancomycin HCl 2 gm/ Sodium (Chloride) 250 mls @ 250 mls/hr IV Q24H [facility] Last Admin: 07/20/19 12:33 Dose: 250 mls/hr Piperacillin Sod/Tazobactam (Sod 4.5 gm/ Sodium Chloride) 100 mls @ 200 mls/hr IV ONETIME ONE Stop: 07/20/19 10:59 Last Admin: 07/20/19 11:55 Dose: 200 mls/hr Dextrose/Sodium Chloride (Dextrose 5%-1/2 Ns) 1,000 mls @ 125 mls/hr IV ASDIRECTED [facility]RSULA Last Admin: 07/21/19 04:44 Dose: 125 mls/hr Vancomycin HCl 2 gm/ Sodium (Chloride) 500 mls @ 250 mls/hr IV Q24H [facility] Ceftriaxone Sodium 2 gm/ (Sodium Chloride) 100 mls @ 200 mls/hr IV Q24H [facility] Piperacillin Sod/Tazobactam (Sod 4.5 gm/ Sodium Chloride) 100 mls @ 200 mls/hr IV ONETIME ONE Stop: 07/21/19 12:29 Last Admin: 07/21/19 13:55 Dose: 200 mls/hr - Exam Quality Assessment: DVT Prophylaxis General: Alert, Cooperative, No Acute Distress HEENT: Pupils Equal, Pupils Reactive, Mucous Membr. Moist/Boley Neck: Supple, Trachea Midline Lungs: Normal Respiratory Effort, Decreased Breath Sounds. No: Crackles, Rhonchi, Wheezing Cardiovascular: Regular Rate, Irregular Rhythm GI/Abdominal Exam: Normal Bowel Sounds, Soft, Non-Tender, No Distention, No Abnormal Bruit (Male) Exam: Deferred Back Exam: Normal Inspection, Full Range of Motion Extremities: Normal Inspection, Normal Range of Motion, Non-Tender, No Pedal Edema, Normal Capillary Refill Skin: Warm, Dry, Intact Neurological: No New Focal Deficit Psy/Mental Status: Alert Sepsis Event Note - Evaluation Sepsis Screening Result: No Definite Risk - Focused Exam Vital Signs: Vital Signs Temp Pulse Resp BP Pulse Ox 07/22/19 04:38 98.1 F 98 18 106/92 H 93 L Date Exam was Performed: 07/22/19 Time Exam was Performed: 14:38 - Problem List & Annotations (1) Abnormal liver function tests SNOMED Code(s): 916852219 Code(s): R94.5 - ABNORMAL RESULTS OF LIVER FUNCTION STUDIES Status: Acute Priority: High Current Visit: Yes (2) Acute hypoxemic respiratory failure SNOMED Code(s): 763452711 Code(s): J96.01 - ACUTE RESPIRATORY FAILURE WITH HYPOXIA Status: Acute Priority: High Current Visit: Yes (3) Acute kidney injury SNOMED Code(s): 68914022, 33899862 Code(s): N17.9 - ACUTE KIDNEY FAILURE, UNSPECIFIED Status: Acute Priority : High Current Visit: Yes (4) Aspiration pneumonia SNOMED Code(s): 423680447 Code(s): J69.0 - PNEUMONITIS DUE TO INHALATION OF FOOD AND VOMIT Status: Acute Priority: High Current Visit: Yes Qualifiers: Aspiration pneumonia type: unspecified Laterality: unspecified laterality Lung location: unspecified part of lung Qualified Code(s): J69.0 - Pneumonitis due to inhalation of food and vomit (5) Atrial fibrillation with RVR SNOMED Code(s): 994882539482895 Code(s): I48.91 - UNSPECIFIED ATRIAL FIBRILLATION Status: Chronic Priority: Medium Current Visit: No (6) Chronic kidney disease (CKD), stage III (moderate) SNOMED Code(s): 342165228 Code(s): N18.3 - CHRONIC KIDNEY DISEASE, STAGE 3 (MODERATE) Status: Chronic Priority: Medium Current Visit: Yes (7) Dementia SNOMED Code(s): 76425477 Code(s): F03.90 - UNSPECIFIED DEMENTIA WITHOUT BEHAVIORAL DISTURBANCE Status: Chronic Priority: Medium Current Visit: Yes Qualifiers: Dementia type: Alzheimer's disease Alzheimer's disease onset: unspecified onset Dementia behavioral disturbance: without behavioral disturbance Qualified Code(s): G30.9 - Alzheimer's disease, unspecified; F02.80 - Dementia in other diseases classified elsewhere without behavioral disturbance (8) Dysphagia SNOMED Code(s): 65967795, 815257123 Code(s): R13.10 - DYSPHAGIA, UNSPECIFIED Status: Chronic Priority: Medium Current Visit: No Qualifiers: Dysphagia type: unspecified Qualified Code(s): R13.10 - Dysphagia, unspecified (9) Healthcare-associated pneumonia SNOMED Code(s): 907501906, 634960127 Code(s): J18.9 - PNEUMONIA, UNSPECIFIED ORGANISM Status: Acute Priority: High Current Visit: Yes (10) Hypercalcemia SNOMED Code(s): 24423073 Code(s): E83.52 - HYPERCALCEMIA Status: Acute Priority: Medium Current Visit: Yes (11) Hyperchloremia SNOMED Code(s): 69210723 Code(s): E87.8 - OTH DISORDERS OF ELECTROLYTE AND FLUID BALANCE, NEC Status : Acute Priority: Medium Current Visit: Yes (12) Hypernatremia SNOMED Code(s): 434701257 Code(s): E87.0 - HYPEROSMOLALITY AND HYPERNATREMIA Status: Acute Priority : Medium Current Visit: Yes (13) Leukocytosis SNOMED Code(s): 171303270, 973319154 Code(s): D72.829 - ELEVATED WHITE BLOOD CELL COUNT, UNSPECIFIED Status: Acute Priority: High Current Visit: Yes Qualifiers: Leukocytosis type: unspecified Qualified Code(s): D72.829 - Elevated white blood cell count, unspecified (14) Lymphopenia SNOMED Code(s): 75417956 Code(s): D72.810 - LYMPHOCYTOPENIA Status: Acute Priority: High Current Visit: Yes (15) prison resident SNOMED Code(s): 555818761 Code(s): Z59.3 - PROBLEMS RELATED TO LIVING IN RESIDENTIAL INSTITUTION Status: Chronic Priority: Medium Current Visit: Yes (16) On warfarin at home SNOMED Code(s): 194569721 Code(s): Z79.01 - FPC (CURRENT) USE OF ANTICOAGULANTS Status: Chronic Priority: Medium Current Visit: Yes (17) Subtherapeutic international normalized ratio (INR) SNOMED Code(s): 402299540, 885219277 Code(s): R79.1 - ABNORMAL COAGULATION PROFILE Status: Resolved Priority: High Current Visit: Yes (18) Suspected 2019-nCoV infection SNOMED Code(s): 951214942 Code(s): R68.89 - OTHER GENERAL SYMPTOMS AND SIGNS Status: Ruled-out Priority: High Current Visit: Yes (19) Alzheimers disease SNOMED Code(s): 28517587 Code(s): G30.9 - ALZHEIMER'S DISEASE, UNSPECIFIED; F02.80 - DEMENTIA IN OTH DISEASES CLASSD ELSWHR W/O BEHAVRL DISTURB Status: Chronic Priority: Medium Current Visit: No Qualifiers: Alzheimer's disease onset: early-onset Dementia behavioral disturbance: with behavioral disturbance Qualified Code(s): G30.0 - Alzheimer's disease with early onset; F02.81 - Dementia in other diseases classified elsewhere with behavioral disturbance (20) Hypokalemia SNOMED Code(s): 26415864 Code(s): E87.6 - HYPOKALEMIA Status: Acute Priority: High Current Visit : Yes - Problem List Review Problem List Initiated/Reviewed/Updated: Yes - My Orders Last 24 Hours: My Active Orders 07/22/19 08:23 C-REACTIVE PROTEIN [CHEM] Routine CMP [COMPREHENSIVE METABOLIC PN,CMP] [CHEM] Routine INR,PT,PROTHROMBIN TIME [COAG] Routine MAGNESIUM [CHEM] Routine PHOSPHORUS [CHEM] Routine - Plan Plan:: ASSESSMENT BY DAY DAY OF ADMISSION - Does not meet sepsis criteria due to no organ dysfunction - High suspicion for COVI19--> worsening respiratory status+leukocytosis+ lymphopenia+abnormal LFTs+elevated D dimer + elevated ferritin and CRP - Previously diagnosed with dysphagia appears to have worsening symptoms for a couple of days - On room air at home and requiring 4-5L NC here - Tachycardic on admission with subtherapeutic INR, as per skilled nursing records has been getting warfarin due to dysphagia will start full dose Lovenox - Hypovolemic likely 2/2 decreased oral intake - Worsening dysphagia --> will keep NPO until speech evaluation DAY 1 - Diet confirmed with skilled nursing, due to worsening dysphagia will request new speech therapy evaluation - O2 supplementation was titrated down to 1L this morning - Minimal changes in lab tests - MRSA negative --> D/C vancomycin - No change in Na--> change IVF to D5W - BP trend 109-128/53-72 - HR in the 90s 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 - On and off of oxygen (1L) throughout the day - WBC down, Transaminitis improving, Inflammatory markers improving; GFR improving - INR within therapeutic window - Sodium improved - Hypokalemia - supplement - Vital signs stable - No fevers PLAN BY PROBLEM Healthcare associated pneumonia Aspiration pneumonia Suspected 2018-nCoV infection Acute hypoxemic respiratory failure Leukocytosis/Lymphopenia Dysphagia - Continue Levaquin and Zosyn - Procalcitonin every 48 hours - O2 supplementation via NC - Monitor for fever, panculture if temp > 99.3 - COVID test x1 negative; Repeat pending - Maximum isolation precautions - PRN DuoNebs - Consider repeat CXR if indicated Acute on chronic kidney disease, stage III, improving Hypovolemic hypernatremia, hypercalcemia, Hypokalemia and hyperchloremia - D5W at 75 - Repeat labs PRN - Monitor urine output - Renally dosed medications - Avoid nephrotoxic agents - Supplement potassium Atrial fibrillation with RVR on Warfarin S/P Subtherapeutic INR - Discontinued full dose Lovenox - Monitor heart rate with vital signs every 4 hours - Discuss anticoagulation with - Resume warfarin today Dysphagia, worsening 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 From [place] Likely discharge in 1-2 days
[2019-07-22] MEDS: Metoprolol Succinate 25 MG Tab.ER PO SCH (09:43)
[2019-07-22] MEDS: risperiDONE 0.5 MG Tab PO SCH (09:44)
[2019-07-22] MEDS: Potassium Chloride 10 MEQ in Premix Bag 1 BAG IV SCH ×4 (11:56→17:50)
[2019-07-22] MEDS: risperiDONE 1 MG Tab PO SCH (17:50)
[2019-07-22] MEDS ORDERED: Warfarin Sliding Scale PO SCH (18:00)
[2019-07-22] MEDS: Sertraline 25 MG Tab PO SCH (21:29)
[2019-07-23] MEDS: Piperacillin/Tazobactam 4.5 GM in Sodium Chloride 0.9% 100 ML IV SCH ×3 (05:03→20:54)
[2019-07-23] MEDS: Dextrose 5% in Water 1,000 ML IV SCH ×2 (06:01→18:19)
[2019-07-23] MEDS: risperiDONE 0.5 MG Tab PO SCH (09:19)
[2019-07-23] MEDS: Metoprolol Succinate 25 MG Tab.ER PO SCH (09:19)
[2019-07-23] MEDS: Levofloxacin/Dextrose 5%-Water 750 MG in Premix Bag 1 BAG IV SCH (10:20)
--- NOTE | 2019-07-23 12:43 | PCM.PN ---
- General Info Date of Service: 07/23/19 Subjective Update: As per nursing patient has refused last couple of doses of psychiatric medications Slept OK Eating OK - Patient Data Vitals - Most Recent: Last Vital Signs Temp 97.8 F 07/23/19 08:00 Pulse 78 07/23/19 09:19 Resp 18 07/23/19 08:00 BP 119/87 07/23/19 09:19 Pulse Ox 97 07/23/19 08:00 Weight - Most Recent: 84.958 kg - Exam General: Other (asleep, opened eyes to name and went back to sleep). No: Cooperative Neck: Trachea Midline, No JVD, No Thyromegaly Lungs: Clear to Auscultation, Normal Respiratory Effort. No: Crackles, Rales, Rhonchi, Rub, Stridor Cardiovascular: No: Rubs GI/Abdominal Exam: Normal Bowel Sounds, Soft, Other (no grimacing with palpation ). No: Distended, Guarding, Rigid, Rebound Extremities: Normal Inspection, No Pedal Edema Sepsis Event Note - Evaluation Sepsis Screening Result: No Definite Risk - Focused Exam Vital Signs: Vital Signs Temp Temp Pulse Pulse Resp BP BP 07/23/19 09:19 78 119/87 07/23/19 08:00 97.8 F 78 18 119/78 07/23/19 05:11 101 H 07/23/19 05:09 97.5 F 16 100/67 Pulse Ox 07/23/19 09:19 07/23/19 08:00 97 07/23/19 05:11 93 L 07/23/19 05:09 Date Exam was Performed: 07/23/19 Time Exam was Performed: 13:18 - Problem List & Annotations (1) Suspected 2019-nCoV infection SNOMED Code(s): 820879817 Code(s): R68.89 - OTHER GENERAL SYMPTOMS AND SIGNS Status: Ruled-out Priority: High Current Visit: Yes (2) Acute hypoxemic respiratory failure SNOMED Code(s): 451391545 Code(s): J96.01 - ACUTE RESPIRATORY FAILURE WITH HYPOXIA Status: Acute Priority: High Current Visit: Yes (3) Dementia SNOMED Code(s): 98654444 Code(s): F03.90 - UNSPECIFIED DEMENTIA WITHOUT BEHAVIORAL DISTURBANCE Status: Chronic Priority: Medium Current Visit: Yes Qualifiers: Dementia type: Alzheimer's disease Alzheimer's disease onset: unspecified onset Dementia behavioral disturbance: without behavioral disturbance Qualified Code(s): G30.9 - Alzheimer's disease, unspecified; F02.80 - Dementia in other diseases classified elsewhere without behavioral disturbance (4) [facility] resident SNOMED Code(s): 037880023 Code(s): Z59.3 - PROBLEMS RELATED TO LIVING IN RESIDENTIAL INSTITUTION Status: Chronic Priority: Medium Current Visit: Yes (5) Atrial fibrillation with RVR SNOMED Code(s): 442860715120735 Code(s): I48.91 - UNSPECIFIED ATRIAL FIBRILLATION Status: Chronic Priority: Medium Current Visit: No (6) Hypernatremia SNOMED Code(s): 001083492 Code(s): E87.0 - HYPEROSMOLALITY AND HYPERNATREMIA Status: Acute Priority : Medium Current Visit: Yes (7) Alzheimers disease SNOMED Code(s): 24968931 Code(s): G30.9 - ALZHEIMER'S DISEASE, UNSPECIFIED; F02.80 - DEMENTIA IN OTH DISEASES CLASSD ELSWHR W/O BEHAVRL DISTURB Status: Chronic Priority: Medium Current Visit: No Qualifiers: Alzheimer's disease onset: early-onset Dementia behavioral disturbance: with behavioral disturbance Qualified Code(s): G30.0 - Alzheimer's disease with early onset; F02.81 - Dementia in other diseases classified elsewhere with behavioral disturbance (8) Subtherapeutic international normalized ratio (INR) SNOMED Code(s): 226681393, 147696874 Code(s): R79.1 - ABNORMAL COAGULATION PROFILE Status: Resolved Priority: High Current Visit: Yes (9) On warfarin at home SNOMED Code(s): 970084901 Code(s): 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.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 OF ANTICOAGULANTS Status: Chronic Priority: Medium Current Visit: Yes (10) Abnormal liver function tests SNOMED Code(s): 810168427 Code(s): R94.5 - ABNORMAL RESULTS OF LIVER FUNCTION STUDIES Status: Acute Priority: High Current Visit: Yes (11) Hyperchloremia SNOMED Code(s): 81597402 Code(s): E87.8 - OTH DISORDERS OF ELECTROLYTE AND FLUID BALANCE, NEC Status : Acute Priority: Medium Current Visit: Yes (12) Leukocytosis SNOMED Code(s): 259245698, 532300672 Code(s): D72.829 - ELEVATED WHITE BLOOD CELL COUNT, UNSPECIFIED Status: Acute Priority: High Current Visit: Yes Qualifiers: Leukocytosis type: unspecified Qualified Code(s): D72.829 - Elevated white blood cell count, unspecified (13) Lymphopenia SNOMED Code(s): 48829887 Code(s): D72.810 - LYMPHOCYTOPENIA Status: Acute Priority: High Current Visit: Yes (14) Dysphagia SNOMED Code(s): 56238250, 735026215 Code(s): R13.10 - DYSPHAGIA, UNSPECIFIED Status: Chronic Priority: Medium Current Visit: No Qualifiers: Dysphagia type: unspecified Qualified Code(s): R13.10 - Dysphagia, unspecified (15) Hypercalcemia SNOMED Code(s): 98942162 Code(s): E83.52 - HYPERCALCEMIA Status: Acute Priority: Medium Current Visit: Yes (16) Healthcare-associated pneumonia SNOMED Code(s): 119267092, 763187810 Code(s): J18.9 - PNEUMONIA, UNSPECIFIED ORGANISM Status: Acute Priority: High Current Visit: Yes (17) Aspiration pneumonia SNOMED Code(s): 121274005 Code(s): J69.0 - PNEUMONITIS DUE TO INHALATION OF FOOD AND VOMIT Status: Acute Priority: High Current Visit: Yes Qualifiers: Aspiration pneumonia type: unspecified Laterality: unspecified laterality Lung location: unspecified part of lung Qualified Code(s): J69.0 - Pneumonitis due to inhalation of food and vomit (18) Acute kidney injury SNOMED Code(s): 67276794, 01090260 Code(s): N17.9 - ACUTE KIDNEY FAILURE, UNSPECIFIED Status: Acute Priority : High Current Visit: Yes (19) Chronic kidney disease (CKD), stage III (moderate) SNOMED Code(s): 059862127 Code(s): N18.3 - CHRONIC KIDNEY DISEASE, STAGE 3 (MODERATE) Status: Chronic Priority: Medium Current Visit: Yes (20) Pharyngeal dysphagia SNOMED Code(s): 93835981953573 Code(s): R13.13 - DYSPHAGIA, PHARYNGEAL PHASE Status: Acute Current Visit : Yes - Problem List Review Problem List Initiated/Reviewed/Updated: Yes - Plan Plan:: ASSESSMENT BY DAY DAY OF ADMISSION - Does not meet sepsis criteria due to no organ dysfunction - High suspicion for COVI19--> worsening respiratory status+leukocytosis+ lymphopenia+abnormal LFTs+elevated D dimer + elevated ferritin and CRP - Previously diagnosed with dysphagia appears to have worsening symptoms for a couple of days - On room air at home and requiring 4-5L NC here - Tachycardic on admission with subtherapeutic INR, as per senior care records has been getting warfarin due to dysphagia will start full dose Lovenox - Hypovolemic likely 2/2 decreased oral intake - Worsening dysphagia --> will keep NPO until speech evaluation DAY 1 - Diet confirmed with senior care, due to worsening dysphagia will request new speech therapy evaluation - O2 supplementation was titrated down to 1L this morning - Minimal changes in lab tests - MRSA negative --> D/C vancomycin - No change in Na--> change IVF to D5W - BP trend 109-128/53-72 - HR in the 90s - COVID #1 negative 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 - On and off of oxygen (1L) throughout the day - WBC down, Transaminitis improving, Inflammatory markers improving; GFR improving - INR within therapeutic window - Sodium improved - Vital signs stable - No fevers Day 3 - Refusing to take medications - Has started having some agitation and inappropriate behaviors - Due to patient not taking PO medication and 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 will convert risperidone to haloperidol PO dose and then to IV for the next 24-48 hours and restart PO risperidone once more cooperative - Off nasal cannula since noon yesterday - Repeat COVID #2 negative - BP trend 101-122/50-92 - Afebrile PLAN BY PROBLEM Healthcare associated pneumonia Aspiration pneumonia Pharyngeal dysphagia - Continue Levaquin and Zosyn day 3 - Procalcitonin every 48 hours - Monitor for fever, panculture if temp > 99.3 - PRN DuoNebs Acute on chronic kidney disease, stage III, improving - Discontinue D5W at 75 - Repeat labs PRN - Monitor urine output - Renally dosed medications - Avoid nephrotoxic agents Atrial fibrillation on Warfarin Supratherapeutic INR - Monitor HR with VS - Continue Warfarin to be dosed by pharmacy Pharyngeal dysphagia 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 From [place] Length of stay greater than 96 hours due to suboptimal response to treatment.
[2019-07-23] MEDS ORDERED: Haloperidol Lactate 5 MG/ML SDV ONE (14:14)
[2019-07-23] MEDS ORDERED: Warfarin Sliding Scale PO SCH (18:00)
[2019-07-23] MEDS: Sertraline 25 MG Tab PO SCH (20:54)
[2019-07-23] MEDS: Haloperidol Lactate 5 MG/ML SDV IVPUSH SCH (20:56)
[2019-07-24] MEDS: Piperacillin/Tazobactam 4.5 GM in Sodium Chloride 0.9% 100 ML IV SCH ×3 (04:00→20:13)
[2019-07-24] MEDS: Metoprolol Succinate 25 MG Tab.ER PO SCH (08:19)
[2019-07-24] MEDS: Haloperidol Lactate 5 MG/ML SDV IVPUSH SCH (08:22)
[2019-07-24] MEDS: Levofloxacin/Dextrose 5%-Water 750 MG in Premix Bag 1 BAG IV SCH (09:42)
--- NOTE | 2019-07-24 11:04 | PCM.PN ---
- General Info Date of Service: 07/24/19 Subjective Update: BM today Slept OK Eating OK - Patient Data Vitals - Most Recent: Last Vital Signs Temp 97.5 F 07/24/19 08:17 Pulse 98 07/24/19 08:19 Resp 16 07/24/19 04:08 BP 103/88 07/24/19 08:19 Pulse Ox 95 07/24/19 08:17 Weight - Most Recent: 87.815 kg - Exam Physical Findings Comments:: General: Other (asleep, opened eyes to name and went back to sleep). No: Cooperative Neck: Trachea Midline, No JVD, No Thyromegaly Lungs: Clear to Auscultation, Normal Respiratory Effort. No: Crackles, Rales, Rhonchi, Rub, Stridor Cardiovascular: No: Rubs GI/Abdominal Exam: Normal Bowel Sounds, Soft, Other (no grimacing with palpation ). No: Distended, Guarding, Rigid, Rebound Extremities: Normal Inspection, No Pedal Edema Sepsis Event Note - Evaluation Sepsis Screening Result: No Definite Risk - Problem List & Annotations (1) Acute hypoxemic respiratory failure SNOMED Code(s): 555135244 Code(s): J96.01 - ACUTE RESPIRATORY FAILURE WITH HYPOXIA Status: Acute Priority: High Current Visit: Yes (2) Dementia SNOMED Code(s): 56767229 Code(s): F03.90 - UNSPECIFIED DEMENTIA WITHOUT BEHAVIORAL DISTURBANCE Status: Chronic Priority: Medium Current Visit: Yes Qualifiers: Dementia type: Alzheimer's disease Alzheimer's disease onset: unspecified onset Dementia behavioral disturbance: without behavioral disturbance Qualified Code(s): G30.9 - Alzheimer's disease, unspecified; F02.80 - Dementia in other diseases classified elsewhere without behavioral disturbance (3) [facility] resident SNOMED Code(s): 053123668 Code(s): Z59.3 - PROBLEMS RELATED TO LIVING IN RESIDENTIAL INSTITUTION Status: Chronic Priority: Medium Current Visit: Yes (4) Atrial fibrillation with RVR SNOMED Code(s): 090446480907615 Code(s): I48.91 - UNSPECIFIED ATRIAL FIBRILLATION Status: Chronic Priority: Medium Current Visit: No (5) Hypernatremia SNOMED Code(s): 332291881 Code(s): E87.0 - HYPEROSMOLALITY AND HYPERNATREMIA Status: Acute Priority : Medium Current Visit: Yes (6) Alzheimers disease SNOMED Code(s): 00309666 Code(s): G30.9 - ALZHEIMER'S DISEASE, UNSPECIFIED; F02.80 - DEMENTIA IN OTH DISEASES CLASSD ELSWHR W/O BEHAVRL DISTURB Status: Chronic Priority: Medium Current Visit: No Qualifiers: Alzheimer's disease onset: early-onset Dementia behavioral disturbance: with behavioral disturbance Qualified Code(s): G30.0 - Alzheimer's disease with early onset; F02.81 - Dementia in other diseases classified elsewhere with behavioral disturbance (7) Subtherapeutic international normalized ratio (INR) SNOMED Code(s): 473417465, 156536929 Code(s): R79.1 - ABNORMAL COAGULATION PROFILE Status: Resolved Priority: High Current Visit: Yes (8) On warfarin at home SNOMED Code(s): 462162084 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(s): 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 Status: Chronic Priority: Medium Current Visit: Yes (9) Abnormal liver function tests SNOMED Code(s): 999049078 Code(s): R94.5 - ABNORMAL RESULTS OF LIVER FUNCTION STUDIES Status: Acute Priority: High Current Visit: Yes (10) Hyperchloremia SNOMED Code(s): 35530166 Code(s): E87.8 - OTH DISORDERS OF ELECTROLYTE AND FLUID BALANCE, NEC Status : Acute Priority: Medium Current Visit: Yes (11) Leukocytosis SNOMED Code(s): 880885474, 974326553 Code(s): D72.829 - ELEVATED WHITE BLOOD CELL COUNT, UNSPECIFIED Status: Acute Priority: High Current Visit: Yes Qualifiers: Leukocytosis type: unspecified Qualified Code(s): D72.829 - Elevated white blood cell count, unspecified (12) Lymphopenia SNOMED Code(s): 32967213 Code(s): D72.810 - LYMPHOCYTOPENIA Status: Acute Priority: High Current Visit: Yes (13) Dysphagia SNOMED Code(s): 66613285, 848179893 Code(s): R13.10 - DYSPHAGIA, UNSPECIFIED Status: Chronic Priority: Medium Current Visit: No Qualifiers: Dysphagia type: unspecified Qualified Code(s): R13.10 - Dysphagia, unspecified (14) Hypercalcemia SNOMED Code(s): 64693924 Code(s): E83.52 - HYPERCALCEMIA Status: Acute Priority: Medium Current Visit: Yes (15) Healthcare-associated pneumonia SNOMED Code(s): 836223857, 279667631 Code(s): J18.9 - PNEUMONIA, UNSPECIFIED ORGANISM Status: Acute Priority: High Current Visit: Yes (16) Aspiration pneumonia SNOMED Code(s): 889805072 Code(s): J69.0 - PNEUMONITIS DUE TO INHALATION OF FOOD AND VOMIT Status: Acute Priority: High Current Visit: Yes Qualifiers: Aspiration pneumonia type: unspecified Laterality: unspecified laterality Lung location: unspecified part of lung Qualified Code(s): J69.0 - Pneumonitis due to inhalation of food and vomit (17) Acute kidney injury SNOMED Code(s): 87144597, 94754138 Code(s): N17.9 - ACUTE KIDNEY FAILURE, UNSPECIFIED Status: Acute Priority : High Current Visit: Yes (18) Chronic kidney disease (CKD), stage III (moderate) SNOMED Code(s): 033629881 Code(s): N18.3 - CHRONIC KIDNEY DISEASE, STAGE 3 (MODERATE) Status: Chronic Priority: Medium Current Visit: Yes (19) Pharyngeal dysphagia SNOMED Code(s): 90195329331608 Code(s): R13.13 - DYSPHAGIA, PHARYNGEAL PHASE Status: Acute Current Visit : Yes (20) Suspected 2019-nCoV infection SNOMED Code(s): 442368687 Code(s): R68.89 - OTHER GENERAL SYMPTOMS AND SIGNS Status: Ruled-out Priority: High Current Visit: Yes - Problem List Review Problem List Initiated/Reviewed/Updated: Yes - Plan Plan:: ASSESSMENT BY DAY DAY OF ADMISSION - Does not meet sepsis criteria due to no organ dysfunction - High suspicion for COVI19--> worsening respiratory status+leukocytosis+ lymphopenia+abnormal LFTs+elevated D dimer + elevated ferritin and CRP - Previously diagnosed with dysphagia appears to have worsening symptoms for a couple of days - On room air at home and requiring 4-5L NC here - Tachycardic on admission with subtherapeutic INR, as per retirement records has been getting warfarin due to dysphagia will start full dose Lovenox - Hypovolemic likely 2/2 decreased oral intake - Worsening dysphagia --> will keep NPO until speech evaluation DAY 1 - Diet confirmed with retirement, due to worsening dysphagia will request new speech therapy evaluation - O2 supplementation was titrated down to 1L this morning - Minimal changes in lab tests - MRSA negative --> D/C vancomycin - No change in Na--> change IVF to D5W - BP trend 109-128/53-72 - HR in the 90s - COVID #1 negative 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 - On and off of oxygen (1L) throughout the day - WBC down, Transaminitis improving, Inflammatory markers improving; GFR improving - INR within therapeutic window - Sodium improved - Vital signs stable - No fevers Day 3 - Refusing to take medications - Has started having some agitation and inappropriate behaviors - Due to patient not taking PO medication and him being on [facility]dc antipsychotics will convert risperidone to haloperidol PO dose and then to IV for the next 24-48 hours and restart PO risperidone once more cooperative - Off nasal cannula since noon yesterday - Repeat COVID #2 negative - BP trend 101-122/50-92 - Afebrile Day 4 - Afebrile, no need for O2 supplementation in > 24 hrs - Elevated procalcitonin yesterday - Magnesium and potassium low - PLAN BY PROBLEM Healthcare associated pneumonia Aspiration pneumonia Pharyngeal dysphagia - Continue Levaquin and Zosyn day 4 - Procalcitonin every 48 hours - Monitor for fever, panculture if temp > 99.3 - PRN DuoNebs Acute on chronic kidney disease, stage III, improving - Repeat labs PRN - Monitor urine output - Renally dosed medications - Avoid nephrotoxic agents Atrial fibrillation on Warfarin Supratherapeutic INR - Monitor HR with VS - Continue Warfarin to be dosed by pharmacy Pharyngeal dysphagia 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 From [facility] Length of stay greater than 96 hours due to suboptimal response to treatment.
[2019-07-24] MEDS ORDERED: Potassium Chloride 10 MEQ in Premix Bag 1 BAG IV SCH (14:15)
[2019-07-24] MEDS: Potassium Chloride 10 MEQ in Premix Bag 1 BAG IV SCH ×4 (16:58→20:09)
[2019-07-24] MEDS ORDERED: risperiDONE 1 MG Tab PO SCH (17:00)
[2019-07-24] MEDS ORDERED: Warfarin Sliding Scale PO SCH (18:00)
[2019-07-24] MEDS: Dextrose 5% in Water 1,000 ML IV SCH (20:12)
[2019-07-24] MEDS: Sertraline 25 MG Tab PO SCH (20:13)
[2019-07-25] MEDS: Piperacillin/Tazobactam 4.5 GM in Sodium Chloride 0.9% 100 ML IV SCH ×2 (03:58→13:04)
[2019-07-25] MEDS: Metoprolol Succinate 25 MG Tab.ER PO SCH (08:40)
[2019-07-25] MEDS ORDERED: risperiDONE 0.5 MG Tab PO SCH (09:00)
[2019-07-25] MEDS: Dextrose 5% in Water 1,000 ML IV SCH (09:41)
[2019-07-25] MEDS: Levofloxacin/Dextrose 5%-Water 750 MG in Premix Bag 1 BAG IV SCH (09:44)
--- NOTE | 2019-07-25 11:05 | PCM.DCSUM1 ---
Discharge Summary - Hospital Course HPI Initial Comments: Patient with baseline dementia so information obtained by chart review and verbal staff reports. "The patient presents by [facility] from [facility] for a cough and fever. This started a couple days ago. He has some shortness of breath also. He had a [facility] 101 [facility] the [facility]. He was given some tylenol and his temp improved. He has a wet cough. He has no chest pain, abdominal pain, nausea or vomiting. According to [facility] records he has had some trouble swallowing lately." Diagnosis: Stroke: No - Discharge Data Discharge Date: 07/25/19 (Admit date: 07/20/19) Discharge Disposition: DC/Tfer to SNF 03 Condition: Good - Referral to Home Health Primary Care Physician: Kirt Tenorio MD - Discharge Diagnosis/Problem(s) (1) Abnormal liver function tests SNOMED Code(s): 096727106 ICD Code: R94.5 - ABNORMAL RESULTS OF LIVER FUNCTION STUDIES Status: Acute Priority: High (2) Acute hypoxemic respiratory failure SNOMED Code(s): 213177841 ICD Code: J96.01 - ACUTE RESPIRATORY FAILURE WITH HYPOXIA Status: Acute Priority: High (3) Acute kidney injury SNOMED Code(s): 02385889, 23352012 ICD Code: N17.9 - ACUTE KIDNEY FAILURE, UNSPECIFIED Status: Acute Priority: High (4) Aspiration pneumonia SNOMED Code(s): 455972427 ICD Code: J69.0 - PNEUMONITIS DUE TO INHALATION OF FOOD AND VOMIT Status: Resolved Priority: High Qualifiers: Aspiration pneumonia type: unspecified Laterality: unspecified laterality Lung location: unspecified part of lung Qualified Code(s): J69.0 - Pneumonitis due to inhalation of food and vomit (5) Atrial fibrillation with RVR SNOMED Code(s): 503141549031146 ICD Code: I48.91 - UNSPECIFIED ATRIAL FIBRILLATION Status: Chronic Priority: Medium (6) Chronic kidney disease (CKD), stage III (moderate) SNOMED Code(s): 447604517 ICD Code: N18.3 - CHRONIC KIDNEY DISEASE, STAGE 3 (MODERATE) Status: Chronic Priority: Medium (7) Dementia SNOMED Code(s): 30910378 ICD Code: F03.90 - UNSPECIFIED DEMENTIA WITHOUT BEHAVIORAL DISTURBANCE Status: Chronic Priority: Medium Qualifiers: Dementia type: Alzheimer's disease Alzheimer's disease onset: unspecified onset Dementia behavioral disturbance: without behavioral disturbance Qualified Code(s): G30.9 - Alzheimer's disease, unspecified; F02.80 - Dementia in other diseases classified elsewhere without behavioral disturbance (8) Dysphagia SNOMED Code(s): 35556405, 240474995 ICD Code: R13.10 - DYSPHAGIA, UNSPECIFIED Status: Chronic Priority: Medium Qualifiers: Dysphagia type: unspecified Qualified Code(s): R13.10 - Dysphagia, unspecified (9) Healthcare-associated pneumonia SNOMED Code(s): 696908723, 104969282 ICD Code: J18.9 - PNEUMONIA, UNSPECIFIED ORGANISM Status: Resolved Priority: High (10) Hypercalcemia SNOMED Code(s): 89824137 ICD Code: E83.52 - HYPERCALCEMIA Status: Resolved Priority: Medium (11) Hyperchloremia SNOMED Code(s): 30576160 ICD Code: E87.8 - OTH DISORDERS OF ELECTROLYTE AND FLUID BALANCE, NEC Status: Resolved Priority: Medium (12) Hypernatremia SNOMED Code(s): 228126776 ICD Code: E87.0 - HYPEROSMOLALITY AND HYPERNATREMIA Status: Resolved Priority: Medium (13) Leukocytosis SNOMED Code(s): 009851575, 528558795 ICD Code: D72.829 - ELEVATED WHITE BLOOD CELL COUNT, UNSPECIFIED Status: Resolved Priority: High Qualifiers: Leukocytosis type: unspecified Qualified Code(s): D72.829 - Elevated white blood cell count, unspecified (14) Lymphopenia SNOMED Code(s): 43431163 ICD Code: D72.810 - LYMPHOCYTOPENIA Status: Acute Priority: High (15) half-way resident SNOMED Code(s): 222753032 ICD Code: Z59.3 - PROBLEMS RELATED TO LIVING IN RESIDENTIAL INSTITUTION Status: Chronic Priority: Medium (16) On warfarin at home SNOMED Code(s): 066321236 ICD Code: Z79.01 - PROP AND SCENERY MAKER (CURRENT) USE OF ANTICOAGULANTS Status: Chronic Priority: Medium (17) Subtherapeutic international normalized ratio (INR) SNOMED Code(s): 304133721, 164329224 ICD Code: R79.1 - ABNORMAL COAGULATION PROFILE Status: Resolved Priority : High (18) Suspected 2019-nCoV infection SNOMED Code(s): 752804332 ICD Code: R68.89 - OTHER GENERAL SYMPTOMS AND SIGNS Status: Ruled-out Priority: High (19) Alzheimers disease SNOMED Code(s): 74424257 ICD Code: G30.9 - ALZHEIMER'S DISEASE, UNSPECIFIED; F02.80 - DEMENTIA IN OTH DISEASES CLASSD ELSWHR W/O BEHAVRL DISTURB Status: Chronic Priority: Medium Qualifiers: Alzheimer's disease onset: early-onset Dementia behavioral disturbance: with behavioral disturbance Qualified Code(s): G30.0 - Alzheimer's disease with early onset; F02.81 - Dementia in other diseases classified elsewhere with behavioral disturbance (20) Hypokalemia SNOMED Code(s): 84211070 ICD Code: E87.6 - HYPOKALEMIA Status: Acute Priority: High - Patient Summary/Data Consults: Consultations 07/20/19 13:31 Consult to Case Management/Economic Research Assistant [CONS] Routine Consult to Electric Wheelchair Repairer [CONS] Routine OT Evaluation and Treatment [CONS] Routine PT Evaluation and Treatment [CONS] Routine Respiratory Care Assess and Treatment [CONS] Routine 07/21/19 15:51 Consult to Speech Language Pathology [COMPREHENSIVE OPHTHALMOLOGIST Evaluation and Treatment] [CONS] Routine Labs Pending at D/C: None Recommended Follow-up Testing/Procedures: Follow-up with PCP within 3-5 days of discharge, sooner if needed. Re-check INR on 07/27/19 with results to PCP Hospital Course: DAY OF ADMISSION - Does not meet sepsis criteria due to no organ dysfunction - High suspicion for COVI19--> worsening respiratory status+leukocytosis+ lymphopenia+abnormal LFTs+elevated D dimer + elevated ferritin and CRP - Previously diagnosed with dysphagia appears to have worsening symptoms for a couple of days - On room air at home and requiring 4-5L NC here - Tachycardic on admission with subtherapeutic INR, as per [facility] records has been getting warfarin due to dysphagia will start full dose Lovenox - Hypovolemic likely 2/2 decreased oral intake - Worsening dysphagia --> will keep NPO until speech evaluation DAY 1 - Diet confirmed with fdc, due to worsening dysphagia will request new speech therapy evaluation - O2 supplementation was titrated down to 1L this morning - Minimal changes in lab tests - MRSA negative --> D/C vancomycin - No change in Na--> change IVF to D5W - BP trend 109-128/53-72 - HR in the 90s - COVID #1 negative Day 2 - COMPREHENSIVE OPHTHALMOLOGIST = nectar thick liquids and pureed diet - On and off of oxygen (1L) throughout the day - WBC down, Transaminitis improving, Inflammatory markers improving; GFR improving - INR within therapeutic window - Sodium improved - Vital signs stable - No fevers Day 3 - Refusing to take medications - Has started having some agitation and inappropriate behaviors - Due to patient not taking PO medication and 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 - Continue to hold warfarin - recheck INR on 07/27/19 with results to PCP - Discontinue lasix and cozaar on discharge due to electrolyte abnormalities, lower BP while here (had not been receiving while here) - Discontinue stain as likely no longer benefiting patient (had not been receiving while here) - Discharge back to [place] home of comfort - Patient Instructions Diet: Pureed Diet, Other: [place] thickened liquids Activity: As Tolerated Driving: Do Not Drive Showering/Bathing: May Shower Notify Provider of: Fever, Increased Pain, Nausea and/or Vomiting Other/Special Instructions: Follow-up with PCP moises 3-5 days of discharge. Re -check INR on 07/27/[address] Tenorio. Patient completed antibiotic treatment while here. Negative COVID-19 x2 while here. Patients infection, lack of appetite and antibioitics likley increased INR. This has been held while here. Re-check INR as ordered and may require frequent dosing changes as he continues to recover and Levaquin wears off. Lasix and cozaar were stopped due to patients lower BPs and electrolyte inbalances. He did not recieve either medication while here. Follow-up with PCP in the future if these need to be brought back into the patients home medications. Statin stopped as risk likely outweighs benefit for patient. Resume home medications as directed. No new home medications. Continue PT and COMPREHENSIVE OPHTHALMOLOGIST evaluation/treatment at SNF. Should symptoms return or worsen, contact primary care provider or return to the Emergency Department. - Discharge Plan *PRESCRIPTION DRUG MONITORING PROGRAM REVIEWED*: No *COPY OF PRESCRIPTION DRUG MONITORING REPORT IN PATIENT GARETH: No Home Medications: Home Meds Aspirin [Halfprin] 1 tab PO DAILY 08/23/13 [History] Nitroglycerin [Nitrostat] 0.4 mg SL ASDIRECTED PRN 08/23/13 [History] Warfarin [Coumadin] 2.5 mg PO SUTUTHSA 03/23/14 [History] Metoprolol Succinate 25 mg PO QAM 08/19/18 [History] Famotidine [Pepcid] 20 mg PO DAILY 07/20/19 [History] Sertraline [Zoloft] 25 mg PO BEDTIME 07/20/19 [History] Warfarin [Coumadin] 5 mg PO MOWEFR 07/20/19 [History] allopurinoL [Zyloprim] 100 mg PO DAILY 07/20/19 [History] risperiDONE [Risperdal] 0.5 mg PO DAILY 07/20/19 [History] risperiDONE [Risperdal] 1 mg PO 1700 07/20/19 [History] Oxygen Therapy Mode: Room Air Patient Handouts: Sepsis, Diagnosis, Adult, Chronic Kidney Disease, Adult, Easy -to-Read Referrals: Kirt Tenorio MD [Primary Care Provider] - 08/01/19 2:15 pm (Please follow up with Dr. Tenorio on July 31 at 2:15.) - Discharge Summary/Plan Comment DC Time >30 min.: Yes (45 mins ) - General Info Date of Service: 07/25/19 Subjective Update: Difficult to obtain ROS due to baseline dementia. Last BM today No patient or nursing concerns/complaints Patient sleeping on and off throughout morning - Patient Data Vitals - Most Recent: Last Vital Signs Temp 97.5 F 07/25/19 04:05 Pulse 86 07/25/19 08:40 Resp 16 07/25/19 04:05 BP 96/50 L 07/25/19 08:40 Pulse Ox 93 L 07/25/19 04:05 Weight - Most Recent: 195 lb 1.6 oz I&O - Last 24 hours: Intake & Output 07/24/19 07/25/19 07/25/19 22:59 06:59 14:59 Intake Total 1421 1469 0 Balance 1421 1469 0 Lab Results - Last 24 hrs: Laboratory Results - last 24 hr 07/25/19 07/25/19 07/25/19 Range/Units 05:30 05:30 05:30 WBC 6.46 (4.23-9.07) K/mm3 RBC 3.10 L (4.63-6.08) M/mm3 Hgb 8.9 L (13.7-17.5) gm/dl Hct 28.4 L (40.1-51.0) % MCV 91.6 (79.0-92.2) fl MCH 28.7 (25.7-32.2) pg MCHC 31.3 L (32.2-35.5) g/dl RDW Std Deviation 43.6 (35.1-43.9) fL Plt Count 328 (163-337) K/mm3 MPV 10.7 (9.4-12.3) fl Neut % (Auto) 69.2 H (34.0-67.9) % Lymph % (Auto) 18.3 L (21.8-53.1) % [place] % (Auto) 7.6 (5.3-12.2) % Eos % (Auto) 3.6 (0.8-7.0) Baso % (Auto) 0.2 (0.1-1.2) % Neut # (Auto) 4.48 (1.78-5.38) K/mm3 Lymph # (Auto) 1.18 L (1.32-3.57) K/mm3 [place] # (Auto) 0.49 (0.30-0.82) K/mm3 Eos # (Auto) 0.23 (0.04-0.54) K/mm3 Baso # (Auto) 0.01 (0.01-0.08) K/mm3 PT 39.7 H (9.7-12.0) SECONDS INR 3.94 Sodium 140 (136-145) mEq/L Potassium 3.4 L (3.5-5.1) mEq/L Chloride 107 (98-107) mEq/L Carbon Dioxide 23 (21-32) mEq/L Anion Gap 13.4 (5-15) BUN 14 (7-18) mg/dL Creatinine 1.2 (0.7-1.3) mg/dL Est Cr Clr Drug Dosing 52.46 mL/min Estimated GFR (MDRD) 58 (>60) mL/min BUN/Creatinine Ratio 11.7 L (14-18) Glucose 121 H (83-115) mg/dL Calcium 9.1 (8.5-10.1) mg/dL Phosphorus 2.8 (2.6-4.7) mg/dL Magnesium 1.9 (1.8-2.4) mg/dl CHELY Results - Last 24 hrs: Microbiology 07/20/19 09:53 Aerobic Blood Culture - Preliminary Blood - Venous NO GROWTH AFTER 5 DAYS Anaerobic Blood Culture - Preliminary NO GROWTH AFTER 5 DAYS 07/20/19 10:00 Aerobic Blood Culture - Preliminary Blood - Venous - Lab Draw NO GROWTH AFTER 5 DAYS Anaerobic Blood Culture - Preliminary NO GROWTH AFTER 5 DAYS Med Orders - Current: Current Medications Acetaminophen (Tylenol) 325 mg PO Q4H PRN PRN Reason: Pain (Mild 1-3)/fever Last Admin: 07/21/19 21:01 Dose: 325 mg Albuterol (Proventil Hfa) 0 gm INH Q4H PRN PRN Reason: Shortness of breath Dextrose/Water (Dextrose 5% In Water) 1,000 mls @ 75 mls/hr IV ASDIRECTED [facility] Last Admin: 07/25/19 09:41 Dose: 75 mls/hr Piperacillin Sod/Tazobactam (Sod 4.5 gm/ Sodium Chloride) 100 mls @ 25 mls/hr IV Q8H [facility] Last Admin: 07/25/19 03:58 Dose: 25 mls/hr Levofloxacin/Dextrose 750 mg/ (Premix) 150 mls @ 100 mls/hr IV Q24H [facility] Last Admin: 07/25/19 09:44 Dose: 100 mls/hr Metoprolol Succinate (Toprol Xl) 25 mg PO QAM [facility] Last Admin: 07/25/19 08:40 Dose: Not Given Risperidone (Risperidal) 1 mg PO DAILY@1700 [facility] Last Admin: 07/24/19 17:46 Dose: 1 mg Risperidone (Risperidal) 0.5 mg PO DAILY [facility] Last Admin: 07/25/19 08:45 Dose: 0.5 mg Sertraline HCl (Zoloft) 25 mg PO BEDTIME [facility] Last Admin: 07/24/19 20:13 Dose: 25 mg Sodium Chloride (Saline Flush) 10 ml FLUSH ASDIRECTED PRN PRN Reason: Keep Vein Open Last Admin: 07/21/19 11:19 Dose: 10 ml Warfarin Sodium (Pharmacy To Dose - Warfarin) 1 dose PO ASDIRECTED PRN PRN Reason: RX TO DOSE WARFARIN Warfarin Sodium (Coumadin Sliding Scale) 0 each PO QPM [facility] Stop: 07/25/19 18:01 Discontinued Medications Albuterol (Proventil Hfa) 0 gm INH ONETIME ONE Stop: 07/20/19 09:26 Last Admin: 07/20/19 10:06 Dose: 2 puff Enoxaparin Sodium (Lovenox) 80 mg SUBCUT Q12H [facility] Last Admin: 07/20/19 15:39 Dose: 80 mg Enoxaparin Sodium (Lovenox) 80 mg SUBCUT Q12H [facility] Last Admin: 07/22/19 04:39 Dose: 80 mg Haloperidol Lactate (Haldol) 1 mg IVPUSH BID [facility] Last Admin: 07/24/19 08:22 Dose: 1 mg Haloperidol Lactate (Haldol) Confirm Administered Dose 5 mg .ROUTE .STK-MED ONE Stop: 07/23/19 14:15 Last Admin: 07/23/19 14:20 Dose: 5 mg Ceftriaxone Sodium 2 gm/ (Sodium Chloride) 100 mls @ 200 mls/hr IV Q24H [facility] Last Admin: 07/20/19 11:20 Dose: 200 mls/hr Piperacillin Sod/Tazobactam (Sod 4.5 gm/ Sodium Chloride) 100 mls @ 200 mls/hr IV Q6H [facility] Last Admin: 07/20/19 15:35 Dose: Not Given Vancomycin HCl 2 gm/ Sodium (Chloride) 250 mls @ 250 mls/hr IV Q24H [facility] Last Admin: 07/20/19 12:33 Dose: 250 mls/hr Piperacillin Sod/Tazobactam (Sod 4.5 gm/ Sodium Chloride) 100 mls @ 200 mls/hr IV ONETIME ONE Stop: 07/20/19 10:59 Last Admin: 07/20/19 11:55 Dose: 200 mls/hr Dextrose/Sodium Chloride (Dextrose 5%-1/2 Ns) 1,000 mls @ 125 mls/hr IV ASDIRECTED [facility] Last Admin: 07/21/19 04:44 Dose: 125 mls/hr Vancomycin HCl 2 gm/ Sodium (Chloride) 500 mls @ 250 mls/hr IV Q24H [facility] Ceftriaxone Sodium 2 gm/ (Sodium Chloride) 100 mls @ 200 mls/hr IV Q24H [facility] Levofloxacin/Dextrose 750 mg/ (Premix) 150 mls @ 100 mls/hr IV Q48H [facility] Stop: 07/23/19 14:00 Last Admin: 07/23/19 10:20 Dose: 100 mls/hr Piperacillin Sod/Tazobactam (Sod 4.5 gm/ Sodium Chloride) 100 mls @ 200 mls/hr IV ONETIME ONE Stop: 07/21/19 12:29 Last Admin: 07/21/19 13:55 Dose: 200 mls/hr Potassium Chloride 10 meq/ (Premix) 100 mls @ 100 mls/hr IV Q1H [facility] Stop: 07/22/19 14:59 Last Admin: 07/22/19 17:50 Dose: 100 mls/hr Potassium Chloride 10 meq/ (Premix) 100 mls @ 100 mls/hr IV Q1H [facility] Stop: 07/24/19 18:14 Last Admin: 07/24/19 14:37 Dose: Not Given Potassium Chloride 10 meq/ (Premix) 100 mls @ 100 mls/hr IV Q1H [facility] Stop: 07/24/19 19:59 Last Admin: 07/24/19 20:09 Dose: 100 mls/hr Risperidone (Risperidal) 1 mg PO 1700 [facility] Last Admin: 07/22/19 17:50 Dose: 1 mg Risperidone (Risperidal) 0.5 mg PO DAILY [facility] Last Admin: 07/23/19 09:19 Dose: 0.5 mg Warfarin Sodium (Coumadin Sliding Scale) 0 each PO QPM [facility] Stop: 07/22/19 18:01 Last Admin: 07/22/19 18:08 Dose: Not Given Warfarin Sodium (Coumadin Sliding Scale) 0 each PO QPM [facility] Stop: 07/23/19 21:00 Last Admin: 07/23/19 18:16 Dose: Not Given Warfarin Sodium (Coumadin Sliding Scale) 0 each PO QPM [facility] Stop: 07/24/19 21:00 Last Admin: 07/24/19 18:11 Dose: Not Given - Exam Quality Assessment: Reports: DVT Prophylaxis. Denies: Supplemental Oxygen General: Reports: Alert, Cooperative, No Acute Distress. Denies: Oriented HEENT: Reports: Pupils Equal, Pupils Reactive, Mucous Membr. Moist/[place] Neck: Reports: Supple, Trachea Midline Lungs: Reports: Clear to Auscultation, Normal Respiratory Effort Cardiovascular: Reports: Irregular Rhythm GI/Abdominal Exam: Normal Bowel Sounds, Soft, Non-Tender, No Distention (Male) Exam: Deferred Rectal (Males) Exam: Deferred Extremities: Normal Inspection, No Pedal Edema Skin: Reports: Warm, Dry, Intact Neurological: Reports: No New Focal Deficit Psy/Mental Status: Reports: Alert
[2019-07-25 12:10] VITALS: BP 83/36; PULSE 80
[2019-07-25] MEDS ORDERED: Warfarin Sliding Scale PO SCH (18:00)
== END 2019-07-25 13:25 | DRG 177 ==
LOC: JD.ED 08:49 → JD.MS 13:31
PROVIDERS: ADMIT Internal Medicine; ATTEND Internal Medicine
PROC: 8E0ZXY6 Isolation (ICD-10-PCS; principal; 2019-07-20)
DX: J69.0 Pneumonitis due to inhalation of food and vomit (principal); J96.01 Acute respiratory failure with hypoxia; N17.9 Acute kidney failure, unspecified; E85.2 Heredofamilial amyloidosis, unspecified; J18.9 Pneumonia, unspecified organism; F02.81 Dementia in other diseases classified elsewhere, unspecified severity, with behavioral disturbance; E87.0 Hyperosmolality and hypernatremia; R94.5 Abnormal results of liver function studies; I48.91 Unspecified atrial fibrillation; N18.3 Chronic kidney disease, stage 3 (moderate); G30.9 Alzheimer's disease, unspecified; I12.9 Hypertensive chronic kidney disease with stage 1 through stage 4 chronic kidney disease, or unspecified chronic kidney disease; Y95 Nosocomial condition; E87.8 Other disorders of electrolyte and fluid balance, not elsewhere classified; E87.6 Hypokalemia; D72.810 Lymphocytopenia; R09.02 Hypoxemia; R79.1 Abnormal coagulation profile; F32.9 Major depressive disorder, single episode, unspecified; I10 Essential (primary) hypertension; E78.00 Pure hypercholesterolemia, unspecified; R13.10 Dysphagia, unspecified; Z79.01 Long term (current) use of anticoagulants; Z90.49 Acquired absence of other specified parts of digestive tract; I25.2 Old myocardial infarction; Z90.89 Acquired absence of other organs; Z79.82 Long term (current) use of aspirin; Z79.899 Other long term (current) drug therapy; Z95.1 Presence of aortocoronary bypass graft; Z95.5 Presence of coronary angioplasty implant and graft
CPT/HCPCS: 36415; 71045; 80053; 81001; 82570; 82728; 83605; 83615; 83880; 84300; 85025; 85379; 85610; 85730; 86140; 87040 ×2; 87804 ×2; 94640; 96365; 96367; 99285; A9270; J0696; J2543; J3370; J7050 ×3; U0002; 80048; 83735; 84100; 84145; 84478; 84484; 87641; 92610-GN; 93005; 94760; 94761; 97110-GP; 97162-GP; 99223; 99232; 99239; J1630; J1650; J1956; J3480; J7042; J7060